=== PATIENT | female | born 1960 | race Caucasian/White ===

== ENCOUNTER → 2018-03-10 | Outpatient (CLI) | payer BC | END | disposition home or self-care (01) | LOC: LABPAT 09:46 | PROVIDERS: ATTEND Orthopaedic Surgery | DX: Z01.812 Encounter for preprocedural laboratory examination (principal); M16.12 Unilateral primary osteoarthritis, left hip | CPT/HCPCS: 86850; 86900; 86901; 87070 ==

== ENCOUNTER → 2018-03-12 | Outpatient (CLI) | payer BC ==
--- NOTE | 2018-03-12 11:15 | XR ---
EXAMINATION TYPE: XR chest 2V DATE OF EXAM: 03/12/2018 COMPARISON: 01/10/2012 TECHNIQUE: PA and lateral views submitted. HISTORY: Presurgical testing FINDINGS: The lungs are clear and there is no pneumothorax, pleural effusion, or focal pneumonia. Hypertrophic and degenerative change of the spine. No overt failure. Mild hyperinflation correlate for COPD. IMPRESSION: 1. No acute process.
== END ==
LOC: RADXRMAIN 09:49
PROVIDERS: ATTEND Family Medicine
DX: Z01.89 Encounter for other specified special examinations (principal)
CPT/HCPCS: 71046

== ENCOUNTER 2018-03-16 08:00 | Inpatient (IN) | payer BC ==
[2018-03-04 16:07] VITALS: BMI 25.9
--- NOTE | 2018-03-15 12:56 | HP ---
HISTORY AND PHYSICAL CHIEF COMPLAINT: Left hip pain. HISTORY OF PRESENT ILLNESS: The patient is a 57-year-old female who presents with progressive left hip pain worsening over the past couple years. She notes groin and thigh pain, worse with weightbearing activities. She notes she has been limping and is significantly limited because of pain. She has tried medications with only partial temporary relief. PAST MEDICAL HISTORY: Significant for depression, hypertension, hypothyroidism, and arthritis. PAST SURGICAL HISTORY: Significant for previous right total hip arthroplasty and hammertoe repair. CURRENT MEDICATIONS: Nexium, Synthroid and Prozac. ALLERGIES: She has sensitivity to Motrin. FAMILY HISTORY: Significant for heart disease and cancer. SOCIAL HISTORY: Negative for current tobacco or alcohol use. REVIEW OF SYSTEMS: Sixteen point review of systems otherwise reviewed and is noncontributory. PHYSICAL EXAMINATION: On examination, the patient is approximately 5 foot 6, 165 pounds of mesomorphic habitus. HEENT exam is nonfocal. Neck is supple. Passive motion. Left hip flexion 85 degrees, external rotation with hip flex 60 degrees, internal rotation 5 degrees with pain. Clinically, she is 1 cm short. She does have a mildly antalgic gait pattern. Her distal neurovascular appears intact in the left lower extremity. AP of the pelvis obtained in the office show severe left hip osteoarthrosis with bone- on-bone changes. IMPRESSION: 1. Left hip severe osteoarthrosis. 2. History of right total hip arthroplasty. RECOMMENDATIONS: I talked to the patient at length regarding her condition and treatment options. At this point, she is quite limited and symptomatic having pain secondary to her osteoarthrosis. After thorough discussion, she opts to proceed with surgery. We will plan to proceed with direct anterior approach left total hip arthroplasty. We will institute DVT prophylaxis postoperatively. MMODL / IJN: [id number] /
[~2018-03-16 08:00] MED LIST: ACETAMINOPHEN TAB 500 MG TAB PO ONE; DEXAMETHASONE SOD PHOSPHATE 10 MG/ML 1 ML VIAL IV ONE; HYDROmorphone 0.5 MG/0.5 ML SYRINGE IVP PRN; MORPHINE SULFATE 2 MG/ML SYRINGE IV PRN; ONDANSETRON 4 MG/2 ML VIAL IVP ONE; ONDANSETRON 4 MG/2 ML VIAL IVP PRN; TRANEXAMIC ACID 1,000 MG in SODIUM CHLORIDE 0.9% 50 ML IVPB ONE; ceFAZolin IN SWFI 2 GM/20 ML SYRINGE IVP ONE
[2018-03-16] MEDS ORDERED: LIDOCAINE 1% 20 ML VIAL (10MG/ML) FOR IV START INTRADERMA ONE (09:45)
[2018-03-16] MEDS: LACTATED RINGERS 1,000 ML IV SCH (09:45)
[2018-03-16] MEDS ORDERED: SODIUM CHLORIDE 0.9% 100 ML BAG ONE (11:05)
[2018-03-16] MEDS ORDERED: HEPARIN SODIUM,PORCINE 10,000 UNIT/ML 1 ML VIAL ONE (11:05)
[2018-03-16] MEDS ORDERED: MIDAZOLAM 2 MG/2 ML VIAL ONE (11:05)
[2018-03-16] MEDS ORDERED: MORPHINE SULFATE (PF) 0.3 MG/0.3 ML SYR ONE (11:05)
[2018-03-16] MEDS ORDERED: LACTATED RINGERS 1,000 ML BAG IV ONE (11:05)
[2018-03-16] MEDS ORDERED: ePHEDrine SULFATE/0.9% NACL/PF 50 MG/5 ML SYRINGE IV ONE (11:05)
[2018-03-16] MEDS ORDERED: TRANEXAMIC ACID 1,000 MG/10 ML VIAL ONE (11:05)
[2018-03-16] MEDS ORDERED: diphenhydrAMINE 50 MG/ML 1 ML VIAL IVP PRN (11:31)
[2018-03-16] MEDS ORDERED: NALOXONE 0.4 MG/ML 1 ML VIAL IV PRN (11:31)
[2018-03-16] MEDS ORDERED: NALBUPHINE 10 MG/ML VIAL (10ML MDV) IV PRN (11:31)
[2018-03-16] MEDS ORDERED: MORPHINE SULFATE 4 MG/ML SYRINGE IVP PRN (11:31)
[2018-03-16] MEDS ORDERED: ceFAZolin 3,000 MG in SODIUM CHLORIDE 0.9% IRRIGATIO 3,000 ML IRRIGATION ONE (12:03)
[2018-03-16] MEDS ORDERED: LACTATED RINGERS 1,000 ML IV ONE (12:12)
[2018-03-16] MEDS ORDERED: ONDANSETRON 4 MG/2 ML VIAL IVP PRN (13:28)
[2018-03-16] MEDS ORDERED: ACETAMINOPHEN TAB 325 MG TAB PO PRN (13:28)
[2018-03-16] MEDS ORDERED: HYDROmorphone 1 MG/ML 1 ML SYRINGE IVP PRN (13:28)
[2018-03-16] MEDS ORDERED: HYDROmorphone 0.5 MG/0.5 ML SYRINGE IVP PRN (13:28)
--- NOTE | 2018-03-16 13:39 | P.OP ---
Date of Procedure: 03/16/18 Preoperative Diagnosis: Severe left hip osteoarthrosis Postoperative Diagnosis: Same Procedure(s) Performed: Left total hip nmzlrpwsxemu-nxges-pif-anterior approach Implants: Depuy Corail size 12 standard collared press-fit femoral stem, 32 mm +5 cobalt chrome femoral head, 52 mm [place] acetabular shell with neutral polyethylene liner. Anesthesia: spinal Surgeon: Juan Nolasco Refrigerating Engineer #1: Ventura Do Estimated Blood Loss (ml): 250 Pathology: other (Femoral head) Condition: stable Disposition: PACU Indications for Procedure: The patient's a 57-year-old female who presents with progressive left hip pain secondary osteoarthrosis despite conservative measures. A discussion of the risks and benefits of operative intervention versus continued conservative measures was made with patient. She opted to proceed with surgery. Operative risks to include infection, neurovascular injury, development of blood clots, possible ligament was cut, possible fracture, possible instability/dislocation, and possible need for subsequent procedures was discussed. Informed consent was obtained. Operative Findings: As below Description of Procedure: The patient was brought to the operating room, and after induction of spinal anesthesia was placed supine on the Jia table. Positioning was checked with fluoroscopy. The left hip was then prepped and draped in a normal fashion. A 12 cm incision was then made starting 2 fingerbreadths distal and 3 finger breaths posterior to the ASIS in line with the proximal femur. The skin was incised sharply. Subcutaneous tissues were divided sharply. Electrocautery was used for hemostasis. The fascia was split in line with skin incision. The interval between the sartorius and tensor fascia sona was then bluntly developed. The posterior fascia was opened with electrocautery. The lateral circumflex vessels were identified and cauterized prior to sectioning. A retractor was placed along the superior femoral neck as well as the anterior acetabular rim. A wide capsulotomy was performed. The neck cut was then made at a 45 angle to the shaft approximately 1 1/2 cm above the level of the lesser trochanter. The head was extracted. Attention was then paid towards preparing the acetabular. Anterior and posterior retractors were placed. The remaining capsular labral tissue sharply debrided clearly defining the acetabular margins. I began reaming with a 49 mm reamer taking care to initially medialize then reaming at 45 of abduction and 20 of anteversion. Sequential reaming is performed up to 51 mm. A trial to mm acetabular shell was inserted in the same orientation and was fully seated. There was good rim fit and stability. Positioning was checked with fluoroscopy. The final 52 mm acetabular shell was inserted again at 45 of abduction and 20 of anteversion. This was fully seated. There was good rim fit and stability. I did place a 6.5 mm x 25 mm cancellus screw posteriorly with good purchase. Again fluoroscopy was used to check the adequacy of placement. A neutral polyethylene liner was gently impacted. Care was taken to avoid any soft tissue interposition. Pulsatile lavage was utilized. Attention was then paid towards preparing the proximal femur. The central region was cleared of soft tissue. A canal finder was used to find the femoral canal. Sequential broaching was performed up to size 12 taking care to lateralize proximally. A calcar mill was used to fashion the medial calcar. There was good rotational stability. A standard neck along with a 32 mm +5 head was placed. The hip was gently reduced. Fluoroscopy was used to check the adequacy of positioning along with leg lengths. I felt both were good. The hip was gently dislocated. The trial components were removed. The final size 12 collared standard press- fit femoral stem was inserted parallel to the posterior cortex. This was fully seated and there was good rotational stability. A 32 mm +5 cobalt chrome femoral head was placed. This was gently impacted. The hip was then gently reduced. Final fluoroscopic view showed adequate placement implant along with hoahaoism of leg length. Stability was checked with 80 of external rotation and 60 of extension of the right hip. The wound was irrigated with sterile lavage. The fascia was closed with running 0 Vicryl suture. There was minimal drainage therefore a deep drain was not placed. The second dose of IV TXA was given. The subcutaneous tissues were reapproximated interrupted 2-0 Vicryl sutures. The skin was reapproximated with 3-0 subcuticular strata fix suture. Skin tape and adhesive was applied. A sterile dressing was applied. The patient was then awoken from sedation and transferred to recovery room in good condition. Blood loss was estimated at 250 mL. No complications were incurred. Sponge and needle counts were correct at the end of the case. Rik NAJERA assisted during the major components is case to include exposure, bone resection, implantation, and closure.
--- NOTE | 2018-03-16 14:23 | XR ---
EXAMINATION TYPE: XR Hip Limited LT DATE OF EXAM: 03/16/2018 COMPARISON: NONE HISTORY: 57-year-old female status post hip surgery, assess surgical alignment TECHNIQUE: Portable AP view FINDINGS: Image shows placement of left-sided thoracoplasty. The acetabular cup and femoral short stemmed compo nents of the prosthesis appear well seated without periprosthetic fracture. Soft tissue air related t o the recent operation. Alignment grossly anatomic. IMPRESSION: Uncomplicated postoperative appearance left total hip arthroplasty.
--- NOTE | 2018-03-16 16:00 | FL ---
Fluoroscopy HISTORY: Left hip arthroplasty 62 seconds fluoroscopy time supplied to the referring clinician. 2 intraoperative C-arm images docum ent the procedure. See dictated report from orthopedic surgery.
--- NOTE | 2018-03-16 16:01 | XR ---
Limited left hip HISTORY: Left hip arthroplasty 2 intraoperative C-arm images document the procedure
[2018-03-16] MEDS: traMADol 50 MG TAB PO SCH (16:20)
[2018-03-16] MEDS: ceFAZolin IN SWFI 2 GM/20 ML SYRINGE IVP SCH (17:05)
[2018-03-16] MEDS: SENNOSIDES-DOCUSATE SODIUM 1 EACH TAB PO SCH (22:17)
--- NOTE | 2018-03-17 03:13 | CONS ---
CONSULTATION DATE OF CONSULTATION: March 16, 2018. REASON FOR CONSULTATION: Medical management requested by Dr. Nolasco. CONSULTATION: This is a pleasant 57-year-old patient of Dr. Whiteside who has undergone a left total hip arthroplasty. Pain is controlled. Had some nausea earlier, which is improved. Chronic stable medical conditions include GERD, hypertension, osteoarthritis, hypothyroid, hiatal hernia, anxiety. No cardiac history. Lying in bed, comfortable. Did tolerate a small amount of supper. REVIEW OF SYSTEMS: CONSTITUTIONAL: None. HEENT: None. RESPIRATORY: None. CARDIOVASCULAR: None. GENITOURINARY: None. MUSCULOSKELETAL: Aches and pains in joints. DERMATOLOGICAL, HEMATOLOGIC, LYMPHATIC: none. PSYCHIATRY: None. NEUROLOGICAL: None. PAST MEDICAL HISTORY: GERD, hypertension, osteoarthritis, hypothyroid, hiatal hernia, anxiety. PAST SURGICAL HISTORY: EGD, bilateral foot surgery, right hip replacement. PSYCH HISTORY: Anxiety. SOCIAL HISTORY: No smoking. Alcohol occasionally. Lives by herself. FAMILY HISTORY: Reviewed, noncontributory presentation. HOME MEDICATIONS: 1. Naproxen 400 to 600 mg p.o. daily. 2. Synthroid 25 mcg p.o. daily. 3. Prozac 40 mg p.o. daily. 4. Nexium 20 mg b.i.d. ALLERGY: IBUPROFEN. EXAMINATION: VITAL SIGNS: Temp 97.5 pulse 91, respiration 16, blood pressure 143/87, pulse ox 96% on 2 L. GENERAL APPEARANCE: Average build, lying in bed comfortable. EYES: Pupils equal. Conjunctivae normal. HEENT: External appearance of nose and ears normal. Oral cavity normal. NECK: JVD not raised. Mass not palpable. RESPIRATORY: Effort normal. LUNGS: Fair air entry. CARDIOVASCULAR: First and second sounds normal. No edema. ABDOMEN: Soft, nontender. Liver and spleen not palpable. LYMPHATIC: No lymph nodes palpable in neck or axillae. PSYCHIATRY: Alert and oriented x3. Mood and affect normal. NEUROLOGICAL: Pupils equal. Cranial nerves grossly intact. Power and sensation grossly intact. MUSCULOSKELETAL: Evidence of osteoarthritis especially in the hands. Dressing over the left hip. INVESTIGATIONS: Showed currently no labs. ASSESSMENT: 1. Left total hip arthroplasty. 2. Gastroesophageal reflux disease. 3. Essential hypertension. 4. Primary osteoarthritis. 5. Hypothyroid. 6. Hiatal hernia. 7. Anxiety not otherwise specified. 8. Postop nausea probably side effect of pain medication. PLAN: Home medications are resumed. Pain control is in place. Getting IV fluids. The patient is on Xarelto for DVT prophylaxis. Care was discussed with the patient. Questions were answered. Thank you Dr. Nolasco. Copy to Dr. Whiteside. MMMARLONL / ZITA: [id number] /
[2018-03-17] MEDS ORDERED: diphenhydrAMINE 50 MG/ML 1 ML VIAL ONE (03:15)
[2018-03-17] MEDS: LACTATED RINGERS 1,000 ML IV SCH (05:32)
[2018-03-17] MEDS: RIVAROXABAN 10 MG TAB PO SCH (07:53)
[2018-03-17] MEDS: traMADol 50 MG TAB PO SCH ×4 (07:54→23:27)
[2018-03-17] MEDS: FAMOTIDINE 20 MG TAB PO SCH (07:54)
[2018-03-17 08:30] LABS: Basophils % (A) 0 %; Eosinophils # (A) 0.1 k/uL (0-0.7); Eosinophils % (A) 1 %; HCT 36.8 % (34.0-46.0); HGB 11.9 gm/dL (11.4-16.0); Lymphocytes # (A) 1.3 k/uL (1.0-4.8); Lymphocytes % (A) 13 %; MCH 31.3 pg (25.0-35.0); MCHC 32.5 g/dL (31.0-37.0); MCV 96.5 fL (80.0-100.0); Mean Platelet Volume 8.3; Monocytes # (A) 0.7 k/uL (0-1.0); Monocytes % (A) 7 %; Neutrophils # (A) 7.9 k/uL (1.3-7.7); Neutrophils % (A) 78 %; Platelet Count 283 k/uL (150-450); RBC 3.81 m/uL (3.80-5.40); RDW 13.5 % (11.5-15.5); WBC 10.1 k/uL (3.8-10.6)
[2018-03-17] MEDS: HYDROcodone/APAP 7.5-325MG 1 EACH TAB PO PRN ×3 (08:37→20:31)
--- NOTE | 2018-03-17 11:35 | P.PN ---
Progress Note - Text Anesthesia POD 1. Patient is status post left THR under spinal anesthesia with intra-thecal preservative free morphine 300 g. Mild pruritus, excellent post- op analgesia, and no headache or other complications.
--- NOTE | 2018-03-17 12:07 | P.PN ---
Subjective Progress Note Date: 03/17/18 Principal diagnosis: Status post left total hip arthroplasty Patient is seen today resting in hospital bed, family is present at bedside. She noted an increase in pain while ambulating, it is controlled at this time. She denies any chest pain or shortness of breath. Objective - Vital Signs Vital signs: Vital Signs Temp 98.2 F 03/17/18 07:00 Pulse 80 03/17/18 07:00 Resp 16 03/17/18 04:46 BP 157/90 03/17/18 07:00 Pulse Ox 98 03/17/18 07:00 Intake & Output 03/16/18 03/17/18 03/17/18 18:59 06:59 18:59 Intake Total 1701 Output Total 270 Balance 1431 Weight 75.296 kg Intake: IV 1701 Output: Estimated Blood Loss 270 Other: # Voids 2 - Exam Left lower extremity: Incision is clean, dry, and intact. The exofin fusion tape is in good condition. There is minimal soft tissue swelling and ecchymosis surrounding the medial and lateral aspects of the incision. Calf is soft, no tenderness with palpation. Plantar flexion, dorsiflexion, EHL, FHL are intact. Sensory exam to light touch throughout the extremity is intact, dorsal pedis pulses 2+. - Labs CBC & Chem 7: 03/17/18 07:49 Labs: Abnormal Lab Results - Last 24 Hours (Table) 03/17/18 Range/Units 07:49 Neutrophils # 7.9 H (1.3-7.7) k/uL Assessment and Plan Plan: Assessment: Postoperative day #1 status post left total hip arthroplasty Plan: Pain control, continue current oral medication GI and DVT prophylaxis, continue current medication Daily dressing changes Encourage incentive spirometer Medical recommendations Discharge planning: Plan for discharge home tomorrow Time with Patient: Less than 30
[2018-03-17] MEDS: ceFAZolin IN SWFI 2 GM/20 ML SYRINGE IVP SCH (13:13)
[2018-03-17] MEDS: SENNOSIDES-DOCUSATE SODIUM 1 EACH TAB PO SCH (20:31)
--- NOTE | 2018-03-17 23:57 | PN ---
PROGRESS NOTE DATE OF SERVICE: 03/17/2018. PRESENTING COMPLAINT: Left hip surgery. INTERVAL HISTORY: Patient is status post left hip surgery. I saw the patient earlier today. Feeling better. Nausea is better. Did tolerate some diet. Did work with therapy. No chest pain or shortness of breath. REVIEW OF SYSTEMS: Done for constitutional, cardiovascular, GI, pulmonary, musculoskeletal; relevant findings as above. CURRENT MEDICATIONS: Reviewed. PHYSICAL EXAMINATION: Temperature 97.6, pulse 86, respirations 16, blood pressure 169/84, pulse ox 96% on room air. GENERAL APPEARANCE: Propped up in bed comfortable. EYES: Pupils equal. Conjunctivae normal. HEENT: External nose and ears normal. Oral cavity normal. NECK: JVD not raised. Mass not palpable. Respiratory effort normal. LUNGS: Fair air entry. CARDIOVASCULAR: 1st and 2nd heart sounds normal. No edema. ABDOMEN: Soft nontender. Liver and spleen not palpable. PSYCHIATRY: Alert and oriented x3. Mood and affect normal. INVESTIGATIONS: White count 10.1, hemoglobin 11.9. ASSESSMENT: 1. Left total hip arthroplasty. 2. Gastroesophageal reflux disease. 3. Essential hypertension. 4. Primary osteoarthritis. 5. Hypothyroid. 6. Hiatal hernia. 7. Anxiety, not otherwise specified. 8. Postop nausea, side effect of pain medication, improved. PLAN: Care was discussed with the patient. Overall doing better. Continue current medication and treatment plan. Thank you, Dr. Nolasco. REID / ZITA: [id number] /
[2018-03-18] MEDS: HYDROcodone/APAP 7.5-325MG 1 EACH TAB PO PRN ×3 (02:41→13:48)
[2018-03-18] MEDS: LACTATED RINGERS 1,000 ML IV SCH (03:51)
[2018-03-18] MEDS ORDERED: LEVOTHYROXINE 25 MCG TAB PO SCH (06:30)
[2018-03-18] MEDS ORDERED: PANTOPRAZOLE 40 MG TABLET PO SCH (07:30)
[2018-03-18] MEDS: FAMOTIDINE 20 MG TAB PO SCH (08:16)
[2018-03-18] MEDS: traMADol 50 MG TAB PO SCH ×2 (08:16→13:48)
[2018-03-18] MEDS: RIVAROXABAN 10 MG TAB PO SCH (08:17)
[2018-03-18 08:48] VITALS: BP 133/83; PULSE 87; TEMP 98.1
[2018-03-18] MEDS ORDERED: FLUoxetine HCL 20 MG CAP PO SCH (09:00)
[2018-03-18 09:31] VITALS: RESP 16
--- NOTE | 2018-03-18 10:44 | P.PN ---
Subjective Progress Note Date: 03/18/18 Principal diagnosis: Status post left total hip arthroplasty Patient is seen today resting in hospital bed, she appears comfortable. Her pain is much improved since yesterday. She denies any chest pain or shortness of breath. Objective - Vital Signs Vital signs: Vital Signs Temp 98.1 F 03/18/18 07:49 Pulse 87 03/18/18 07:49 Resp 16 03/18/18 08:00 BP 133/83 03/18/18 07:49 Pulse Ox 96 03/18/18 07:49 Intake & Output 03/17/18 03/18/18 03/18/18 18:59 06:59 18:59 Other: Voiding Method Toilet Toilet # Voids 2 2 # Bowel Movements 1 - Exam Left lower extremity: Incision is clean, dry, and intact. The exofin fusion tape is in good condition. There is minimal soft tissue swelling and ecchymosis surrounding the medial and lateral aspects of the incision. Calf is soft, no tenderness with palpation. Plantar flexion, dorsiflexion, EHL, FHL are intact. Sensory exam to light touch throughout the extremity is intact, dorsal pedis pulses 2+. - Labs CBC & Chem 7: 03/17/18 07:49 Assessment and Plan Plan: Assessment: Postoperative day #2 status post left total hip arthroplasty Plan: Pain control, plan for discharge on [place] and tramadol GI and DVT prophylaxis, discharge on Eliquis 2.5mg bid Daily dressing changes Encourage incentive spirometer Medical recommendations Discharge planning: Plan for discharge home today Time with Patient: Less than 30
--- NOTE | 2018-03-18 10:57 | P.DS ---
Providers Date of admission: 03/16/18 08:50 Expected date of discharge: 03/18/18 Attending physician: Juan Nolasco Consults: 03/16/18 13:33 Consult Physician Routine Consulting Provider: Lamont Whiteside Consult Reason/Comments: Medical Management Do you want consulting provider notified?: Yes Primary care physician: Lamont Whiteside [facility] Course: Date of admission: 03/16/2018 Date of discharge: 03/18/2018 Admission diagnosis: Status post direct anterior left total hip arthroplasty Discharge diagnosis: Same Attending physician: Dr. Nolasco Surgical procedures: Direct anterior left total hip arthroplasty Brief history: Patient is a 57-year-old female with a history of progressive primary left hip osteoarthritis. At this point patient has failed conservative treatment measures and has opted to proceed with a elective left total hip arthroplasty. Hospital course: Details of patient's surgery can be found in operative report. Patient tolerated the procedure well and was subsequently transported to orthopedic floor. Patient's orthopeidc and medical care was provided daily. Patient had daily laboratory tests performed for evaluation of overall blood counts. Patient had daily physical therapy to include strengthening range of motion as well as education with walker ambulation. Patient was treated with Xarelto for their postoperative DVT prophylaxis during their inpatient stay. Patient was noted to have a relatively uneventful postoperative course. Patient reported satisfactory pain control with oral pain medications by postoperative day 0. Patient showed satisfactory progress with physical therapy. Patient moved steadily through the program and had no difficulty meeting the goals by postoperative day 2. Given patient's otherwise satisfactory course and having met physical therapy goals, plan is to discharge patient home on postoperative day 2. Discharge condition/disposition: Patient will be discharged home in stable condition. Discharge medications: Instructions are given on resumption of patient's normal daily medications per primary care recommendation, in addition patient will be prescribed [place] 7.5 mg/325 mg, tramadol 50 mg, Eliquis 2.5mg, Colace 100mg. Discharge instructions: 1. Wound care and infection precautions, keep incision dry and covered while showering, no lotions, creams, moisturizers. No soaking, tubs, pools, hottubs. Do not scrub over the incision. 2. Weight-bear as tolerated with walker / cane until follow-up. 3. Ice and elevate when necessary. Do not exceed 20 minutes per hour with ice pack. 4. Utilize compression sleeve until seen at first follow up appointment. 5. Visiting nursing care. 6. Home physical therapy. 7. Pain meds and anticoagulants per prescription. 8. Pain medication has potential to cause constipation. Increase oral fluid and fiber intake. Contact primary care provider if you have not had a bowel movement within 48 hours after discharge 9. No anti-inflammatory medication until discussed at first post operative visit, this including Motrin, Aleve, Mobic, Diclofenac. 10. Follow up in office at 2 weeks postop with Rik Do PA-C 11. Follow up with your primary care doctor 7-10 days after discharge. 12. Contact [facility] with any questions, . Procedures: Direct anterior left total hip arthroplasty Patient Condition at Discharge: Good Plan - Discharge Summary Discharge Rx Participant: Yes New Discharge Prescriptions: New Apixaban [Eliquis] 2.5 mg PO BID #28 tab Docusate [Colace] 100 mg PO DAILY #30 capsule HYDROcodone/APAP 7.5-325MG [[place] 7.5] 1 - 2 each PO Q6HR PRN #56 tab PRN Reason: Pain traMADol HCl [Ultram] 50 mg PO Q6H PRN #28 tab PRN Reason: Pain No Action Levothyroxine Sodium [Synthroid] 25 mcg PO QAM FLUoxetine HCL [PROzac] 40 mg PO QAM Naproxen Sodium [Aleve] 440 - 660 mg PO DAILY Esomeprazole Magnesium [NexIUM] 20 mg PO BID Discharge Medication List FLUoxetine HCL [PROzac] 40 mg PO QAM 11/03/13 [History] Levothyroxine Sodium [Synthroid] 25 mcg PO QAM 11/03/13 [History] Esomeprazole Magnesium [NexIUM] 20 mg PO BID 03/04/18 [History] Naproxen Sodium [Aleve] 440 - 660 mg PO DAILY 03/04/18 [History] Apixaban [Eliquis] 2.5 mg PO BID #28 tab 03/18/18 [Rx] Docusate [Colace] 100 mg PO DAILY #30 capsule 03/18/18 [Rx] HYDROcodone/APAP 7.5-325MG [[place] 7.5] 1 - 2 each PO Q6HR PRN #56 tab 03/18/18 [ Rx] traMADol HCl [Ultram] 50 mg PO Q6H PRN #28 tab 03/18/18 [Rx] Follow up Appointment(s)/Referral(s): [facility], [NON-STAFF] - As Needed Ventura Do PAC [PHYSICIAN HEALTH OFFICER] - 2 Weeks Activity/Diet/Wound Care/Special Instructions: Orthopedic Discharge Instructions: 1. Wound care and infection precautions, keep incision dry and covered while showering, no lotions, creams, moisturizers. No soaking, pools, hot tubs. Do not scrub over incision. 2. Weight-bear as tolerated with walker / cane until follow-up. 3. Ice and elevate when necessary. Do not exceed 20 minutes per hour with ice pack. 4. Utilize compression sleeve until seen at first follow up appointment. 5. Pain meds and anticoagulants per prescription. 6. Pain medication has potential to cause constipation. Increase oral fluid and fiber intake. Contact primary care provider if you have not had a bowel movement within 48 hours after discharge. 7. No anti-inflammatory medication until discussed at first post operative visit, this including Motrin, Aleve, Mobic, Diclofenac. 8. Follow up in office at 2 weeks postop with Rik Do PA-C 9. Follow up with your primary care doctor 7-10 days after discharge. 10. Contact [facility] with any questions, . Discharge Disposition: HOME WITH HOME HEALTH SERVICES
--- NOTE | 2018-03-18 17:34 | PN ---
PROGRESS NOTE DATE OF SERVICE: March 18, 2018. PRESENTING COMPLAINT: Left hip surgery. INTERVAL HISTORY: Patient is status post left hip surgery. Some pain is present. Overall feeling better. No cardiac symptoms. Did work with therapy. Did tolerate her meals. REVIEW OF SYSTEMS: Done for constitutional, cardiovascular, GI, pulmonary and relevant findings as above. CURRENT MEDICATIONS: Reviewed. PHYSICAL EXAMINATION: VITAL SIGNS: Temperature 98.1, pulse 87, respirations 14, blood pressure 133/83, pulse ox 96 percent. GENERAL APPEARANCE: Sitting up, comfortable. EYES: Pupils equal. Conjunctivae normal. NECK: JVD not raised. Mass not palpable. RESPIRATORY: Effort normal. LUNGS are clear. CARDIOVASCULAR: 1st and 2nd sounds normal. No edema. ABDOMEN: Soft, nontender. Liver and spleen not palpable. PSYCHIATRY: Alert and oriented x3. Mood and affect is normal. INVESTIGATIONS: No lab work from today. ASSESSMENT: 1. Left total hip arthroplasty. 2. Gastroesophageal reflux disease. 3. Essential hypertension. 4. Primary osteoarthritis. 5. Hypothyroid. 6. Hiatal hernia. 7. Anxiety not otherwise specified. 8. Postop nausea, side effect of pain medication, much improved. PLAN: Overall doing much better. Continue current medication and treatment plan. If discharged, should follow with the family doctor. Thank you Dr. Nolasco. MMODL / IJN: [id number] /
== END 2018-03-18 14:00 | disposition home health service (06) | DRG 470 ==
LOC: 2ORMAIN 08:50 → 4SSUR 15:04
PROVIDERS: ADMIT Orthopaedic Surgery; ATTEND Orthopaedic Surgery
PROC: 0SRB02A Replacement of Left Hip Joint with Metal on Polyethylene Synthetic Substitute, Uncemented, Open Approach (ICD-10-PCS; principal; 2018-03-16 10:25)
DX: M16.12 Unilateral primary osteoarthritis, left hip (principal); E03.9 Hypothyroidism, unspecified; F41.9 Anxiety disorder, unspecified; I10 Essential (primary) hypertension; K21.9 Gastro-esophageal reflux disease without esophagitis; K44.9 Diaphragmatic hernia without obstruction or gangrene; Z96.641 Presence of right artificial hip joint; Z79.890 Hormone replacement therapy; Z79.899 Other long term (current) drug therapy
CPT/HCPCS: 73501; 85025; 86850; 86891; 86900; 86901; 88300

== ENCOUNTER → 2018-03-19 | Outpatient (CLI) | payer BC ==
--- NOTE | 2018-03-19 14:14 | US ---
EXAMINATION TYPE: US venous doppler duplex LE LT DATE OF EXAM: 03/19/2018 1:29 PM COMPARISON: NONE CLINICAL HISTORY: M79.662, R22.42 PAIN AND SWELLING IN LT LOWER LIMB. Left hip replacement Thursday, SIDE PERFORMED: Left TECHNIQUE: The lower extremity deep venous system is examined utilizing real time linear array sonog jose with graded compression, doppler sonography and color-flow sonography. VESSELS IMAGED: External Iliac Vein (EIV) Common Femoral Vein Deep Femoral Vein Greater Saphenous Vein * Femoral Vein Popliteal Vein Small Saphenous Vein * Proximal Calf Veins (* superficial vessels) Grayscale, color doppler, spectral doppler imaging performed of the deep veins of the left lower extr emity. There is normal flow, compressibility, vascular waveforms. Left Leg: Negative for DVT. Soft tissue swelling/edema at the anterior left knee at the patient's ar ea of pain and swelling measuring 6.0 x 1.5 x 5.1 cm IMPRESSION: Elongated region of subcutaneous edema anterior to the left knee in the area of patient 's pain. No sonographic evidence of deep venous thrombosis within the left lower extremity.
== END ==
LOC: RADUSWWP 12:41
PROVIDERS: ATTEND Orthopaedic Surgery
DX: R60.0 Localized edema (principal); Z88.6 Allergy status to analgesic agent

== ENCOUNTER → 2019-01-27 | Outpatient (CLI) | payer BC ==
--- NOTE | 2019-01-28 11:17 | MM ---
Reason for exam: screening (asymptomatic). Last mammogram was performed 14 years ago. History: Patient is postmenopausal. Family history of breast cancer in paternal aunt. Physical Findings: A clinical breast exam by your physician is recommended on an annual basis and results should be correlated with mammographic findings. MG Screening Mammo w CAD Bilateral CC and MLO view(s) were taken. No prior studies available for comparison. The breast tissue is heterogeneously dense. This may lower the sensitivity of mammography. There is no discrete abnormality. No significant changes when compared with prior studies. ASSESSMENT: Negative, BI-RAD 1 RECOMMENDATION: Routine screening mammogram of both breasts in 1 year.
== END | disposition home or self-care (01) ==
LOC: RADMAMWWP 08:03
PROVIDERS: ATTEND Family Medicine
DX: Z12.31 Encounter for screening mammogram for malignant neoplasm of breast (principal)
CPT/HCPCS: 77067

== ENCOUNTER 2019-02-16 15:58 | Emergency (ER) | payer BC ==
[2019-02-16 16:03] VITALS: BP 198/104; PULSE 99; RESP 18; TEMP 98.3
--- NOTE | 2019-02-16 16:12 | ED ---
Female Urogenital HPI - General Chief complaint: Urogenital Stated complaint: Female Time Seen by Provider: 02/16/19 16:04 Source: patient Mode of arrival: ambulatory Limitations: no limitations - History of Present Illness Initial comments: Patient is a 58-year-old female presenting to the emergency room with a chief complaint of vaginal pain. Patient reports about a week ago she had "rough sex" with her boyfriend and afterwards developed vaginal swelling which is causing her obstructive urinary symptoms. She denies any bruising or lacerations to the vagina. Patient denies vaginal bleeding or discharge. Patient noticed a foul smell. Denies increased urgency or frequency or dysuria. Denies hematuria, hematochezia or melena. Denies any abdominal pain. Reports the swelling has gradually decreased since the incident occurred. Patient is concerned for STI and would like to get check. Denies night sweats fevers or chills. Denies fla nk pain, nausea vomiting diarrhea. - Related Data Home Medications Medication Instructions Recorded Confirmed FLUoxetine HCL [PROzac] 40 mg PO QAM 11/03/13 03/16/18 Levothyroxine Sodium [Synthroid] 25 mcg PO QAM 11/03/13 03/16/18 Esomeprazole Magnesium [NexIUM] 20 mg PO BID 03/04/18 03/16/18 Naproxen Sodium [Aleve] 440 - 660 mg PO DAILY 03/04/18 03/16/18 Previous Rx's Medication Instructions Recorded Apixaban [Eliquis] 2.5 mg PO BID #28 tab 03/18/18 Docusate [Colace] 100 mg PO DAILY #30 capsule 03/18/18 HYDROcodone/APAP 7.5-325MG [[place] 1 - 2 each PO Q6HR PRN #56 tab 03/18/18 7.5] traMADol HCl [Ultram] 50 mg PO Q6H PRN #28 tab 03/18/18 Fluconazole [Diflucan] 150 mg PO ONCE #2 tab 02/16/19 Nitrofurantoin Monohyd/M-Cryst 100 mg PO Q12HR #14 cap 02/16/19 [Macrobid] metroNIDAZOLE [Flagyl] 500 mg PO BID #14 tab 02/16/19 Allergies Allergy/AdvReac Type Severity Reaction Status Date / Time ibuprofen [From Motrin] Allergy "hyperventi Verified 03/16/18 15:27 late" SPINAL ANESTHESIA Allergy Itching Uncoded 03/16/18 15:27 Review of Systems ROS Statement: Those systems with pertinent positive or pertinent negative responses have been documented in the HPI. ROS Other: All systems not noted in ROS Statement are negative. Past Medical History Past Medical History: GERD/Reflux, Hypertension, Osteoarthritis (OA), Pneumonia, Thyroid Disorder Additional Past Medical History / Comment(s): Hx hypertension, no meds for past year, hiatal hernia, hx pneumonia 2012, hx anemia. History of Any Multi-Drug Resistant Organisms: None Reported Past Surgical History: Joint Replacement, Orthopedic Surgery Additional Past Surgical History / Comment(s): EGD, bilateral foot surgery, right hip replacement. TLH Past Anesthesia/Blood Transfusion Reactions: Previous Problems w/ Anesthesia, Postoperative Nausea & Vomiting (PONV) Additional Past Anesthesia/Blood Transfusion Reaction / Comment(s): Itchy, rash and hives after spinal. Itching after general anesthesia. Past Psychological History: Anxiety Smoking Status: Never smoker Past Alcohol Use History: Occasional Past Drug Use History: None Reported - Past Family History Mother Family Medical History: No Reported History General Exam Limitations: no limitations General appearance: alert, in no apparent distress Head exam: Present: atraumatic, normocephalic, normal inspection Eye exam: Present: normal appearance Pupils: Present: normal accommodation ENT exam: Present: normal exam, mucous membranes moist Neck exam: Present: normal inspection, full ROM Respiratory exam: Present: normal lung sounds bilaterally Cardiovascular Exam: Present: regular rate, normal rhythm, normal heart sounds GI/Abdominal exam: Present: soft. Absent: tenderness Speculum exam: Present: vaginal discharge (Hwang, watery), tissue (Tissue swelling along the labia minora and majora on the right side.). Absent: normal speculum exam, erythema, vaginal bleeding, foreign body, laceration, other (Negative chandelier sign. No strawberry cervix.) By manual exam: Absent: cervical motion tenderness, adnexal tenderness, uterine tenderness Extremities exam: Present: normal inspection, full ROM Back exam: Present: normal inspection, full ROM Neurological exam: Present: alert, oriented X3 Psychiatric exam: Present: normal affect, normal mood Skin exam: Present: warm, dry, intact, normal color Course Vital Signs 02/16/19 16:00 Temperature 98.3 F Pulse Rate 99 Respiratory 18 Rate Blood Pressure 198/104 O2 Sat by Pulse 99 Oximetry Medical Decision Making - Medical Decision Making Patient is a 58-year-old female presenting to the emergency room with a chief complaint of vaginal pain. Patient had "rough sex" about a week ago and developed vaginal swelling afterwards. No signs of gross hematuria but did notice a foul smell. On exam there is swelling of the labia majora and minora on her right side. I suspect this is causing obstructive urinary symptoms. No obvious bleeding noted in the vagina. No other signs of trauma. Gonorrhea chlamydia and Trichomonas pending. UA shows a contaminated sample with elevated white blood cells and red blood cells. I suspect the blood cells are caused by possible trauma to the bladder or urethra. Patient will be treated with Macrobid for possible UTI. Also, suspect the patient to have bacterial vaginosi s considering she has a foul smell and hawng watery discharge. Patient will be treated with Flagyl advised not to drink alcohol. Patient also given Diflucan on watch and wait basis in case she develops a yeast infection afterwards. Patient advised to follow-up with a urologist for possible traumatic damage to the urinary tract. Strict return parameters were thoroughly discussed with patient was understanding and agreeable. Case discussed with physician. - Lab Data Lab Results 02/16/19 02/16/19 Range/Units 16:42 17:40 Urine Color Yellow Urine Appearance Cloudy H (Clear) Urine pH 6.0 (5.0-8.0) Ur Specific [place] 1.027 (1.001-1.035) Urine Protein 1+ H (Negative) Urine Glucose (UA) Negative (Negative) Urine Ketones Negative (Negative) Urine Blood Moderate H (Negative) Urine Nitrite Negative (Negative) Urine Bilirubin Negative (Negative) Urine Urobilinogen 3.0 (<2.0) mg/dL Ur Leukocyte Esterase Large H (Negative) Urine RBC >182 H (0-5) /hpf Urine WBC 152 H (0-5) /hpf Ur Squamous Epith Cells 11 H (0-4) /hpf Urine Bacteria Rare H (None) /hpf Hyaline Casts 3 H (0-2) /lpf Urine Mucus Moderate H (None) /hpf Trichomonas Ag (Rapid) Negative (Negative) Disposition Clinical Impression: Urinary tract infection, Hematuria, Vaginal Discharge, Bacterial vaginosis, Swelling of vagina Disposition: HOME SELF-CARE Condition: Stable Instructions (If sedation given, give patient instructions): Urinary Tract Infection in Women (DC) Additional Instructions: Please take prescribed medication as directed. Please follow up with a urologist. Please return to emergency department if symptoms worsen. Prescriptions: Fluconazole [Diflucan] 150 mg PO ONCE #2 tab metroNIDAZOLE [Flagyl] 500 mg PO BID #14 tab Nitrofurantoin Monohyd/M-Cryst [Macrobid] 100 mg PO Q12HR #14 cap Is patient prescribed a controlled substance at d/c from ED?: No Referrals: Lamont Whiteside DO [Primary Care Provider] - 1-2 days Flavio Tillman MD [STAFF PHYSICIAN] - 1-2 days Time of Disposition: 18:04
[2019-02-16 16:56] LABS: Appearance,Urine Cloudy (Clear); Bacteria,Urine Rare /hpf; Bilirubin,Urine Negative (Negative); Blood,Urine Moderate (Negative); Color,Urine Yellow; Glucose,Urine (UA) Negative (Negative); Hyaline Casts,Urine 3 /lpf (0-2); Ketones,Urine Negative (Negative); Leukocyte Esterase,Urine Large (Negative); Mucus,Urine Moderate /hpf; Nitrite,Urine Negative (Negative); Protein,Urine 1+ (Negative); RBC,Urine >182 /hpf (0-5); Specific Gravity,Urine 1.027 (1.001-1.035); Squamous Epithelial Cell,Urine 11 /hpf (0-4)
[2019-02-17 14:43] LABS: C. trachomatis,PCR Negative (Neg,Equiv); Chlamydia trachomatis Source Cervix
[2019-02-17 15:02] LABS: N. gonorrhoeae,PCR Negative (Neg,Equiv); Neisseria Source Cervix
== END 2019-02-16 18:10 | disposition home or self-care (01) ==
LOC: EC 15:58
DX: N76.0 Acute vaginitis (principal); B96.89 Other specified bacterial agents as the cause of diseases classified elsewhere; N39.0 Urinary tract infection, site not specified; K21.9 Gastro-esophageal reflux disease without esophagitis; M19.90 Unspecified osteoarthritis, unspecified site; E07.9 Disorder of thyroid, unspecified; F41.9 Anxiety disorder, unspecified; Z88.4 Allergy status to anesthetic agent; Z88.6 Allergy status to analgesic agent; Z79.1 Long term (current) use of non-steroidal anti-inflammatories (NSAID); Z79.890 Hormone replacement therapy; Z79.899 Other long term (current) drug therapy; Z96.641 Presence of right artificial hip joint
CPT/HCPCS: 81001; 87086; 87491; 87591; 87808; 99283

== ENCOUNTER 2020-02-12 19:35 | Emergency (ER) | payer BC ==
[2020-02-12 19:46] VITALS: TEMP 98.7
[2020-02-12] MEDS ORDERED: ONDANSETRON 4 MG/2 ML VIAL IVP STA (19:59)
[2020-02-12] MEDS ORDERED: PANTOPRAZOLE 40 MG/10 ML VIAL IVP STA (19:59)
[2020-02-12] MEDS ORDERED: SODIUM CHLORIDE 0.9% 1,000 ML IV STA ×2 (19:59)
[2020-02-12] MEDS ORDERED: HYDROmorphone 1 MG/ML 1 ML SYRINGE IVP STA (20:01)
--- NOTE | 2020-02-12 20:26 | ED ---
Abdominal Pain HPI - General Chief Complaint: Abdominal Pain Stated Complaint: ABD pain Time Seen by Provider: 02/12/20 19:49 Source: patient, RN notes reviewed, old records reviewed Mode of arrival: ambulatory Limitations: no limitations - History of Present Illness Initial Comments: 51-year-old female presents with a week of right-sided intermittent pain. She reports that seems to be in her right flank and upper abdominal area. She states that she's had no rashes or skin changes. She saw her PCP grandson lab test she does not know results. They believe is related to muscle spasm. Patient at this time denies any cough and shortness of breath. She denies any other significant complaints of vomiting and diarrhea. - Related Data Home Medications Medication Instructions Recorded Confirmed Esomeprazole Magnesium [NexIUM 20 mg PO BID 02/12/20 02/12/20 24Hr] Previous Rx's Medication Instructions Recorded Ondansetron Odt [Zofran Odt] 4 mg PO Q8HR PRN #12 tab 02/12/20 traMADol HCL [Ultram] 50 mg PO Q6HR PRN 3 Days #12 tab 02/12/20 Allergies Allergy/AdvReac Type Severity Reaction Status Date / Time hydromorphone [From Dilaudid] AdvReac Nausea & Verified 02/12/20 22:27 Vomiting ibuprofen [From Motrin] AdvReac "hyperventi Verified 02/12/20 22:11 late" SPINAL ANESTHESIA Allergy Itching Uncoded 02/12/20 22:11 Review of Systems ROS Statement: Those systems with pertinent positive or pertinent negative responses have been documented in the HPI. ROS Other: All systems not noted in ROS Statement are negative. Past Medical History Past Medical History: GERD/Reflux, Hypertension, Osteoarthritis (OA), Pneumonia, Thyroid Disorder Additional Past Medical History / Comment(s): Hx hypertension, no meds for past year, hiatal hernia, hx pneumonia 2012, hx anemia. History of Any Multi-Drug Resistant Organisms: None Reported Past Surgical History: Joint Replacement, Orthopedic Surgery Additional Past Surgical History / Comment(s): EGD, bilateral foot surgery, right hip replacement. TLH Past Anesthesia/Blood Transfusion Reactions: Previous Problems w/ Anesthesia, Postoperative Nausea & Vomiting (PONV) Additional Past Anesthesia/Blood Transfusion Reaction / Comment(s): Itchy, rash and hives after spinal. Itching after general anesthesia. Past Psychological History: Anxiety Smoking Status: Never smoker Past Alcohol Use History: Occasional Past Drug Use History: None Reported - Past Family History Mother Family Medical History: No Reported History General Exam - General Exam Comments Initial Comments: 51-year-old female. Alert and oriented. Moderate discomfort Limitations: no limitations General appearance: alert, in no apparent distress Head exam: Present: atraumatic, normocephalic, normal inspection Eye exam: Present: normal appearance, PERRL, EOMI. Absent: scleral icterus, conjunctival injection, periorbital swelling ENT exam: Present: normal exam, mucous membranes moist Neck exam: Present: normal inspection. Absent: tenderness, meningismus, lymphadenopathy Respiratory exam: Present: normal lung sounds bilaterally. Absent: respiratory distress, wheezes, rales, rhonchi, stridor Cardiovascular Exam: Present: regular rate, normal rhythm, normal heart sounds. Absent: systolic murmur, diastolic murmur, rubs, gallop, clicks GI/Abdominal exam: Present: soft, tenderness (Right upper quadrant tenderness), normal bowel sounds. Absent: distended, guarding, rebound, rigid Extremities exam: Present: normal inspection, full ROM, normal capillary refill. Absent: tenderness, pedal edema, joint swelling, calf tenderness Back exam: Present: normal inspection Neurological exam: Present: alert, oriented X3, CN II-XII intact Psychiatric exam: Present: normal affect, normal mood Skin exam: Present: warm, dry, intact, normal color. Absent: rash Course Vital Signs 02/12/20 02/12/20 02/12/20 19:44 20:49 21:30 Temperature 98.7 F Pulse Rate 103 H 66 Respiratory 18 18 Rate Blood Pressure 216/105 137/100 140/89 O2 Sat by Pulse 96 99 Oximetry Medical Decision Making - Medical Decision Making 59-year-old presents return today with right-sided flank and upper abdominal pain. Patient reports been intermittent for the past few days. Patient's labwork was reviewed relatively unremarkable. I discussed possibility of biliary colic versus renal onset of pain. Patient had computed tomography scan which showed normal gallbladder. No signs of stones or obstruction. Computed tomography scan mention concern for multiple renal cysts and a third right kidney. Patient was reported these results. Discussed her pain could be rela jayden to the kidney abnormalities or possibly biliary colic. I discussed following up with urology or nephrology as well as primary care doctor and general surgery for possible HIDA scan and future. Patient is agreeable to treatment plan. Ration did have a acute nausea and vomiting after receiving Dilaudid. This will be placed on ALLERGY list. - Lab Data Result diagrams: 02/12/20 20:26 02/12/20 20:26 Lab Results 02/12/20 02/12/20 02/12/20 Range/Units 20:26 20:26 20:26 WBC 6.4 (3.8-10.6) k/uL RBC 4.55 (3.80-5.40) m/uL Hgb 12.5 (11.4-16.0) gm/dL Hct 37.9 (34.0-46.0) % MCV 83.3 (80.0-100.0) fL MCH 27.6 (25.0-35.0) pg MCHC 33.1 (31.0-37.0) g/dL RDW 15.0 (11.5-15.5) % Plt Count 397 (150-450) k/uL MPV 8.5 Neutrophils % 50 % Lymphocytes % 36 % Monocytes % 6 % Eosinophils % 5 % Basophils % 1 % Neutrophils # 3.2 (1.3-7.7) k/uL Lymphocytes # 2.3 (1.0-4.8) k/uL Monocytes # 0.4 (0-1.0) k/uL Eosinophils # 0.3 (0-0.7) k/uL Basophils # 0.0 (0-0.2) k/uL PT 9.6 (9.0-12.0) sec INR 0.9 (<1.2) APTT 23.6 (22.0-30.0) sec Sodium (137-145) mmol/L Potassium (3.5-5.1) mmol/L Chloride (98-107) mmol/L Carbon Dioxide (22-30) mmol/L Anion Gap mmol/L BUN (7-17) mg/dL Creatinine (0.52-1.04) mg/dL Est GFR (CKD-EPI)AfAm (>60 ml/min/1.73 sqM) Est GFR (CKD-EPI)NonAf (>60 ml/min/1.73 sqM) Glucose (74-99) mg/dL Plasma Lactic Acid Dougie (0.7-2.0) mmol/L Calcium (8.4-10.2) mg/dL Total Bilirubin (0.2-1.3) mg/dL AST (14-36) U/L ALT (4-34) U/L Alkaline Phosphatase (38-126) U/L Troponin I (0.000-0.034) ng/mL Total Protein (6.3-8.2) g/dL Albumin (3.5-5.0) g/dL Amylase (30-110) U/L Lipase (23-300) U/L Urine Color Yellow Urine Appearance Cloudy H (Clear) Urine pH 5.5 (5.0-8.0) Ur Specific [place] 1.035 (1.001-1.035) Urine Protein 1+ H (Negative) Urine Glucose (UA) Negative (Negative) Urine Ketones Trace H (Negative) Urine Blood Negative (Negative) Urine Nitrite Negative (Negative) Urine Bilirubin Negative (Negative) Urine Urobilinogen 4.0 (<2.0) mg/dL Ur Leukocyte Esterase Small H (Negative) Urine RBC 2 (0-5) /hpf Urine WBC 5 (0-5) /hpf Ur Squamous Epith Cells 4 (0-4) /hpf Calcium Oxalate Crystal Moderate H (None) /hpf Urine Mucus Many H (None) /hpf 02/12/20 02/12/20 02/12/20 Range/Units 20:26 20:26 20:26 WBC (3.8-10.6) k/uL RBC (3.80-5.40) m/uL Hgb (11.4-16.0) gm/dL Hct (34.0-46.0) % MCV (80.0-100.0) fL MCH (25.0-35.0) pg MCHC (31.0-37.0) g/dL RDW (11.5-15.5) % Plt Count (150-450) k/uL MPV Neutrophils % % Lymphocytes % % Monocytes % % Eosinophils % % Basophils % % Neutrophils # (1.3-7.7) k/uL Lymphocytes # (1.0-4.8) k/uL Monocytes # (0-1.0) k/uL Eosinophils # (0-0.7) k/uL Basophils # (0-0.2) k/uL PT (9.0-12.0) sec INR (<1.2) APTT (22.0-30.0) sec Sodium 139 (137-145) mmol/L Potassium 3.9 (3.5-5.1) mmol/L Chloride 108 H (98-107) mmol/L Carbon Dioxide 24 (22-30) mmol/L Anion Gap 7 mmol/L BUN 17 (7-17) mg/dL Creatinine 0.75 (0.52-1.04) mg/dL Est GFR (CKD-EPI)AfAm >90 (>60 ml/min/1.73 sqM) Est GFR (CKD-EPI)NonAf 88 (>60 ml/min/1.73 sqM) Glucose 151 H (74-99) mg/dL Plasma Lactic Acid Dougie 1.3 (0.7-2.0) mmol/L Calcium 9.4 (8.4-10.2) mg/dL Total Bilirubin 0.4 (0.2-1.3) mg/dL AST 21 (14-36) U/L ALT 18 (4-34) U/L Alkaline Phosphatase 81 (38-126) U/L Troponin I <0.012 (0.000-0.034) ng/mL Total Protein 7.5 (6.3-8.2) g/dL Albumin 3.8 (3.5-5.0) g/dL Amylase 52 (30-110) U/L Lipase 137 (23-300) U/L Urine Color Urine Appearance (Clear) Urine pH (5.0-8.0) Ur Specific [place] (1.001-1.035) Urine Protein (Negative) Urine Glucose (UA) (Negative) Urine Ketones (Negative) Urine Blood (Negative) Urine Nitrite (Negative) Urine Bilirubin (Negative) Urine Urobilinogen (<2.0) mg/dL Ur Leukocyte Esterase (Negative) Urine RBC (0-5) /hpf Urine WBC (0-5) /hpf Ur Squamous Epith Cells (0-4) /hpf Calcium Oxalate Crystal (None) /hpf Urine Mucus (None) /hpf 02/12/20 22:21 EKG shows normal sinus rhythm normal EKG. Ventricular rate of 64 bpm. Verbal 160 ms. QRS duration is 84 ms. QT QTc is 4:30/443 ms. - Radiology Data Radiology results: report reviewed CT shows Numerous renal parapelvic cyst. 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 No renal stone or obs truction. Appendix not seen. Chest x-rays negative for acute cardiopulmonary process. Patient's KUB shows mild constipation. Disposition Clinical Impression: Right flank discomfort, Renal cyst, Congenital abnormality of kidney Disposition: HOME SELF-CARE Condition: Good Instructions (If sedation given, give patient instructions): Abdominal Pain (ED) Additional Instructions: Patient is advised to follow-up with primary care doctor, Gen. surgery and nephrology delineate course of of patient's pain. Recommend possibly having a HIDA scan as well as following up with urology regards to renal cysts and third right kidney. Patient can take the medication as prescribed to return to the ED if any alarming signs or symptoms occur. Prescriptions: traMADol HCL [Ultram] 50 mg PO Q6HR PRN 3 Days #12 tab PRN Reason: Nausea Ondansetron Odt [Zofran Odt] 4 mg PO Q8HR PRN #12 tab PRN Reason: Is patient prescribed a controlled substance at d/c from ED?: No Referrals: Lamont Whiteside DO [Primary Care Provider] - 1-2 days Time of Disposition: 22:44
[2020-02-12 20:44] LABS: Basophils % (A) 1 %; Eosinophils # (A) 0.3 k/uL (0-0.7); Eosinophils % (A) 5 %; HCT 37.9 % (34.0-46.0); HGB 12.5 gm/dL (11.4-16.0); Lymphocytes # (A) 2.3 k/uL (1.0-4.8); Lymphocytes % (A) 36 %; MCH 27.6 pg (25.0-35.0); MCHC 33.1 g/dL (31.0-37.0); MCV 83.3 fL (80.0-100.0); Mean Platelet Volume 8.5; Monocytes # (A) 0.4 k/uL (0-1.0); Monocytes % (A) 6 %; Neutrophils # (A) 3.2 k/uL (1.3-7.7); Neutrophils % (A) 50 %; Platelet Count 397 k/uL (150-450); RBC 4.55 m/uL (3.80-5.40); WBC 6.4 k/uL (3.8-10.6)
[2020-02-12 20:51] LABS: INR 0.9 (<1.2); Partial Thromboplastin Time 23.6 sec (22.0-30.0); Prothrombin Time 9.6 sec (9.0-12.0)
[2020-02-12 20:55] LABS: Appearance,Urine Cloudy (Clear); Bilirubin,Urine Negative (Negative); Blood,Urine Negative (Negative); Calcium Oxalate Crystals,Urine Moderate /hpf; Color,Urine Yellow; Glucose,Urine (UA) Negative (Negative); Ketones,Urine Trace (Negative); Leukocyte Esterase,Urine Small (Negative); Mucus,Urine Many /hpf; Nitrite,Urine Negative (Negative); PH, Urine 5.5 (5.0-8.0); Protein,Urine 1+ (Negative); RBC,Urine 2 /hpf (0-5); Specific Gravity,Urine 1.035 (1.001-1.035); Squamous Epithelial Cell,Urine 4 /hpf (0-4); WBC,Urine 5 /hpf (0-5)
[2020-02-12 20:58] LABS: ALT 18 U/L (4-34); AST 21 U/L (14-36); African American GFR (CKD) >90 (>60 ml/min/1.73 sqM); Albumin 3.8 g/dL (3.5-5.0); Alkaline Phosphatase 81 U/L (38-126); Amylase 52 U/L (30-110); Anion Gap 7 mmol/L; Blood Urea Nitrogen 17 mg/dL (7-17); Calcium 9.4 mg/dL (8.4-10.2); Carbon Dioxide 24 mmol/L (22-30); Chloride 108 mmol/L (98-107); Glucose 151 mg/dL (74-99); Lipase 137 U/L (23-300); Non-African American GFR(CKD) 88 (>60 ml/min/1.73 sqM); Potassium 3.9 mmol/L (3.5-5.1); Sodium 139 mmol/L (137-145); Total Bilirubin 0.4 mg/dL (0.2-1.3); Total Protein 7.5 g/dL (6.3-8.2)
--- NOTE | 2020-02-12 21:10 | XR ---
EXAMINATION TYPE: XR chest 2V DATE OF EXAM: 02/12/2020 COMPARISON: 03/12/2018 HISTORY: Pain TECHNIQUE: 2 views FINDINGS: Heart and mediastinum are normal. Lungs are clear. Diaphragm is normal. Bony thorax appears normal pulmonary vascularity is normal. IMPRESSION: Normal chest. No change.
--- NOTE | 2020-02-12 21:12 | XR ---
EXAMINATION TYPE: XR KUB DATE OF EXAM: 02/12/2020 COMPARISON: 09/08/2013 HISTORY: Pain TECHNIQUE: FINDINGS: 2 views were obtained supine. There is no sign of intestinal obstruction or pneumoperitoneu m. There is some retained fecal material in the large bowel. There is no evidence of a mass. There is mild lumbar dextroscoliosis. There are no pathologic calcifications. IMPRESSION: Nonacute abdomen. Mild constipation.
--- NOTE | 2020-02-12 22:11 | CT ---
EXAMINATION TYPE: CT abdomen pelvis w con DATE OF EXAM: 02/12/2020 COMPARISON: None HISTORY: right flank pain CT DLP: 1293.7 mGycm Automated exposure control for dose reduction was used. CONTRAST: Performed with IV Contrast, patient injected with 80 mL of Isovue 300. There is some mild subsegmental atelectasis at the lung bases. Heart is slightly enlarged. There is n o pericardial effusion. There is moderate hiatal hernia. Liver shows no focal defect. Spleen is intac t. Gallbladder appears normal. Bile ducts are not dilated. Stomach has normal size. There is no evide nce of pancreatic mass. There is no adrenal mass. Kidneys have normal size. There are multiple bilateral renal parapelvic cys ts. There is 3 cm cortical cyst lateral right kidney. There is 1 cm cortical cyst anterior left kidne y. Delayed images show normal renal excretion. The ureters are not dilated. There is no retroperitone al adenopathy. There is bilateral hip prosthesis. There is metal artifact that obscures the pelvis. I see no evidenc e of a pelvic mass. Bladder appears to distends smoothly. There is no inguinal hernia. There is no fr ee fluid in the pelvis. There is no mesenteric edema. There is no ascites or free air. There is no sign of a bowel obstructio n. Appendix is not definitely seen. There is no sign of thickened appendix. Fecal pattern is fairly n ormal. There is mild lumbar dextroscoliosis. There is degenerative disc narrowing in the lumbar spine. There is no compression fracture. IMPRESSION: Numerous renal parapelvic cysts. 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 No renal stone or obstruction. Appendix not seen.
[2020-02-12] MEDS ORDERED: METOCLOPRAMIDE 5 MG/ML 2 ML VIAL IVP STA (22:14)
[2020-02-12] MEDS ORDERED: diphenhydrAMINE 50 MG/ML 1 ML VIAL IVP STA (22:14)
[2020-02-12 23:11] VITALS: BP 136/86; PULSE 61; RESP 16
== END 2020-02-12 23:10 | disposition home or self-care (01) ==
LOC: EC 19:35
DX: N28.1 Cyst of kidney, acquired (principal); Q63.9 Congenital malformation of kidney, unspecified; R11.2 Nausea with vomiting, unspecified; K21.9 Gastro-esophageal reflux disease without esophagitis; Z79.899 Other long term (current) drug therapy; Z88.5 Allergy status to narcotic agent; Z88.6 Allergy status to analgesic agent; Z88.4 Allergy status to anesthetic agent; Z96.643 Presence of artificial hip joint, bilateral
CPT/HCPCS: 36415; 93005; 80053; 82150; 83605; 83690; 84484; 85025; 85610; 85730; 81001; 71046; 74018; 74177; 99285; 96374; 96375 ×4; 96361 ×3; J1200; J2765; J2405; J1170; C9113; Q9967

== ENCOUNTER → 2020-05-29 | Outpatient (CLI) | payer BC ==
--- NOTE | 2020-05-29 16:10 | BD ---
EXAMINATION TYPE: Axial Bone Density DATE OF EXAM: 05/29/2020 COMPARISON: NONE CLINICAL HISTORY: 59 YR OLD FEMALE.....ICD-10 CODE: S22.41XD MULTIPLE FXS, postmenopausal female. Height: 64.2 Weight: 169 FRAX RISK QUESTIONS: History of Fracture in Adulthood: YES RISK FACTORS HISTORY OF: LT ANKLE X3 TIMES AN ADULT RT SIDE RIB FXS AN ADULT History of Wrist Fracture: RT WRIST AM ADULT Surgery to Spine...BILAT THRs AN ADULT Active: WORKING Diet low in dairy products/other sources of calcium: NO Postmenopausal woman: YES, AT AGE 48 YRS OLD Hyperparathyroidism: NO Adrenal Insufficiency: NO MEDICATIONS: Thyroid Medications: YES, IN THE PAST, STOPPED < 1 YR AGO Additional Medications: BP MEDS, REFLUX MEDS, CALCIUM AND VIT D Additional History: HYPERTENSION, REFLUX EXAM MEASUREMENTS: Bone mineral densitometry was performed using the [employer] System. Bone mineral density as measured about the Lumbar spine is: ----- L1-L4(G/cm2): 1.154 T Score Values are as follows: ----- L1: 0.0 ----- L2: 0.3 ----- L3: 0.5 ----- L4: -1.1 ----- L1-L4: -0.2 Bone mineral density BASELINE STUDY, FIRST DEXA SCAN NO HIPS SCANNED.....BILAT THRs...THEREFORE NO FRACS %S Bone mineral density about the L Wrist (g/cm2): 0.352 T Score values are as follows: -----Dist. R+U: -3.7 -----Prox. R+U: -3.8 -----Radius total: -4.9 Bone mineral density BASELINE PERIHERNIAL DEXS STUDY IMPRESSION: Osteoporosis (T Score less than -2.5). There is increased fracture risk and therapy is usually indicated based on age. Re-Screen 1-2 years. NOTE: T-SCORE=SD OF THE YOUNG ADULT MEAN.
--- NOTE | 2020-05-30 10:17 | MM ---
Reason for exam: screening (asymptomatic). Last mammogram was performed 1 year and 4 months ago. History: Patient is postmenopausal. Family history of breast cancer in paternal aunt. Physical Findings: A clinical breast exam by your physician is recommended on an annual basis and results should be correlated with mammographic findings. MG Screening Mammo w CAD Bilateral CC and MLO view(s) were taken. Prior study comparison: January 27, 2019, bilateral MG screening mammo w CAD. January 31, 2005, bilateral screening mammogram w/CAD. The breast tissue is heterogeneously dense. This may lower the sensitivity of mammography. There is no discrete abnormality. No significant changes when compared with prior studies. ASSESSMENT: Negative, BI-RAD 1 RECOMMENDATION: Routine screening mammogram of both breasts in 1 year.
== END | disposition home or self-care (01) ==
LOC: RADMAMWWP 09:31
PROVIDERS: ATTEND Family Medicine
DX: Z12.31 Encounter for screening mammogram for malignant neoplasm of breast (principal); M81.0 Age-related osteoporosis without current pathological fracture; Z80.3 Family history of malignant neoplasm of breast; Z78.0 Asymptomatic menopausal state
CPT/HCPCS: 77067; 77080

== ENCOUNTER 2020-10-01 16:29 | Emergency (ER) | payer BC ==
[2020-10-01 16:38] VITALS: TEMP 97.8
[2020-10-01] MEDS ORDERED: LABETALOL 5 MG/ML VIAL MDV IVP STA (17:28)
[2020-10-01] MEDS ORDERED: SODIUM CHLORIDE 0.9% 1,000 ML IV STA (17:28)
[2020-10-01] MEDS ORDERED: MORPHINE SULFATE 4 MG/ML SYRINGE IVP STA (17:29)
[2020-10-01] MEDS ORDERED: diphenhydrAMINE 50 MG/ML 1 ML VIAL IVP STA (17:29)
[2020-10-01] MEDS ORDERED: ONDANSETRON 4 MG/2 ML VIAL IVP STA (17:29)
[2020-10-01 17:53] VITALS: RESP 18
[2020-10-01 18:04] LABS: Basophils % (A) 1 %; Eosinophils # (A) 0.1 k/uL (0-0.7); Eosinophils % (A) 2 %; HCT 44.6 % (34.0-46.0); Hypochromasia Slight; Lymphocytes % (A) 32 %; MCH 26.6 pg (25.0-35.0); MCHC 31.4 g/dL (31.0-37.0); MCV 84.7 fL (80.0-100.0); Mean Platelet Volume 9.1; Monocytes # (A) 0.4 k/uL (0-1.0); Monocytes % (A) 7 %; Neutrophils # (A) 3.5 k/uL (1.3-7.7); Neutrophils % (A) 56 %; Platelet Count 375 k/uL (150-450); RBC 5.26 m/uL (3.80-5.40); RDW 15.3 % (11.5-15.5); WBC 6.2 k/uL (3.8-10.6)
[2020-10-01 18:07] VITALS: PULSE 70
[2020-10-01 18:13] LABS: ALT 17 U/L (4-34); AST 23 U/L (14-36); African American GFR (CKD) >90 (>60 ml/min/1.73 sqM); Albumin 4.5 g/dL (3.5-5.0); Alkaline Phosphatase 72 U/L (38-126); Anion Gap 10 mmol/L; Blood Urea Nitrogen 17 mg/dL (7-17); Calcium 10.4 mg/dL (8.4-10.2); Carbon Dioxide 24 mmol/L (22-30); Chloride 108 mmol/L (98-107); Glucose 102 mg/dL (74-99); Magnesium 2.1 mg/dL (1.6-2.3); Non-African American GFR(CKD) 84 (>60 ml/min/1.73 sqM); Potassium 4.5 mmol/L (3.5-5.1); Sodium 142 mmol/L (137-145); Total Bilirubin 0.3 mg/dL (0.2-1.3); Total Protein 7.9 g/dL (6.3-8.2)
[2020-10-01 18:52] VITALS: BP 141/86
--- NOTE | 2020-10-01 18:55 | ED ---
Headache HPI - General Chief Complaint: Headache Stated Complaint: abnormal EKG, High BP Time Seen by Provider: 10/01/20 17:23 Mode of arrival: ambulatory Limitations: no limitations - History of Present Illness Initial Comments: Patient is a 59-year-old female presenting to the emergency Department with complaints of a headache as well as elevated blood pressure over the past few days. She does have history of hypertension but stopped taking her medications a few weeks ago. She states she has not had the time to go to her doctor's for a refill. She states she started having a headache about 3-4 days ago, thought it was from seasonal ALLERGIES but then yesterday had a little bit of blurry vision and again today so she came in for evaluation. She is currently not hav ing any blurry vision or double vision. She states her headache is a 5/10. She denies any dizziness or lightheadedness, no chest pain or shortness of breath, no nausea or vomiting. She states she's been eating and drinking as normal. She has no further complaints at this time. - Related Data Home Medications Medication Instructions Recorded Confirmed Esomeprazole Magnesium [NexIUM 20 mg PO DAILY 02/12/20 10/01/20 24Hr] Generic Otc Allergy Med (Unknown 1 tab PO DAILY PRN 10/01/20 10/01/20 Strength) Previous Rx's Medication Instructions Recorded hydroCHLOROthiazide [Hydrodiuril] 25 mg PO DAILY #30 tab 10/01/20 Allergies Allergy/AdvReac Type Severity Reaction Status Date / Time hydromorphone [From Dilaudid] AdvReac Nausea & Verified 10/01/20 18:49 Vomiting ibuprofen [From Motrin] AdvReac "hyperventi Verified 10/01/20 18:49 late" SPINAL ANESTHESIA Allergy Itching Uncoded 10/01/20 16:38 Review of Systems ROS Statement: Those systems with pertinent positive or pertinent negative responses have been documented in the HPI. ROS Other: All systems not noted in ROS Statement are negative. Past Medical History Past Medical History: GERD/Reflux, Hypertension, Osteoarthritis (OA), Pneumonia, Thyroid Disorder Additional Past Medical History / Comment(s): Hx hypertension, no meds for past year, hiatal hernia, hx pneumonia 2012, hx anemia. History of Any Multi-Drug Resistant Organisms: None Reported Past Surgical History: Joint Replacement, Orthopedic Surgery Additional Past Surgical History / Comment(s): EGD, bilateral foot surgery, right hip replacement. TLH Past Anesthesia/Blood Transfusion Reactions: Previous Problems w/ Anesthesia, Postoperative Nausea & Vomiting (PONV) Additional Past Anesthesia/Blood Transfusion Reaction / Comment(s): Itchy, rash and hives after spinal. Itching after general anesthesia. Past Psychological History: Anxiety Smoking Status: Never smoker Past Alcohol Use History: Occasional Past Drug Use History: None Reported - Past Family History Mother Family Medical History: No Reported History General Exam - General Exam Comments Initial Comments: GENERAL: Patient is well-developed and well-nourished. Patient is nontoxic and in no acute distress. HEAD: Atraumatic, normocephalic. EYES: Pupils equal round and reactive to light, extraocular movements intact, sclera anicteric, conjunctiva are normal. Eyelids were unremarkable. ENT: TMs normal, nares patent, oropharynx clear without exudates. Moist mucous membranes. NECK: Normal range of motion, supple without lymphadenopathy or JVD. LUNGS: Unlabored respirations. Breath sounds clear to auscultation bilaterally and equal. No wheezes rales or rhonchi. HEART: Regular rate and rhythm without murmurs, rubs or gallops. ABDOMEN: Soft, nontender, normoactive bowel sounds. No guarding, no rebound. No masses appreciated. : Deferred MUSCULOSKELETAL: Normal extremities with adequate strength and normal range of motion, no pitting or edema. No clubbing or cyanosis. NEUROLOGICAL: Patient is alert and oriented x 3. Motor and sensory are also intact. Cranial nerves II through XII grossly intact. Symmetrical smile. Normal speech, normal gait. PSYCH: Normal mood, normal affect. SKIN: Warm, Dry, normal turgor, no rashes or lesions noted. Limitations: no limitations Course Vital Signs 10/01/20 10/01/20 10/01/20 16:35 17:40 17:53 Temperature 97.8 F Pulse Rate 99 75 Respiratory 16 18 Rate Blood Pressure 189/127 152/110 139/89 O2 Sat by Pulse 98 95 Oximetry 10/01/20 10/01/20 18:06 18:51 Temperature Pulse Rate 70 70 Respiratory 18 18 Rate Blood Pressure 114/94 141/86 O2 Sat by Pulse 96 95 Oximetry Medical Decision Making - Medical Decision Making She is a 59-year-old female here presenting for a headache, elevated blood pressure for the past 3 days. She had a little bit of blurry vision yesterday and this morning but none at this time. She stopped taking her hypertension medicine a few weeks ago. Patient blood pressure upon arrival is 189/127, was rechecked a few minutes later and was at 200/120. Patient's exam has no acute findings, no neural deficits. Patient was given fluids, pain control for her headache as well as labetalol. Lab work is all within normal limits. Patient's blood pressure was monitored over the next 2 hours and had decreased. Current blood pressure is 141/86, she states her headache is much improved and almost gone. She states she feels well. I will re-prescribe her hypertension medication and she will follow-up with her primary care physician. Patient is stable for discharge. Patient is in agreement with this plan of care. Return parameters were discussed with the patient and they verbalized understanding. Case discussed with Dr. Yarbrough. - Lab Data Result diagrams: 10/01/20 17:50 10/01/20 17:50 Lab Results 10/01/20 10/01/20 Range/Units 17:50 17:50 WBC 6.2 (3.8-10.6) k/uL RBC 5.26 (3.80-5.40) m/uL Hgb 14.0 (11.4-16.0) gm/dL Hct 44.6 (34.0-46.0) % MCV 84.7 (80.0-100.0) fL MCH 26.6 (25.0-35.0) pg MCHC 31.4 (31.0-37.0) g/dL RDW 15.3 (11.5-15.5) % Plt Count 375 (150-450) k/uL MPV 9.1 Neutrophils % 56 % Lymphocytes % 32 % Monocytes % 7 % Eosinophils % 2 % Basophils % 1 % Neutrophils # 3.5 (1.3-7.7) k/uL Lymphocytes # 2.0 (1.0-4.8) k/uL Monocytes # 0.4 (0-1.0) k/uL Eosinophils # 0.1 (0-0.7) k/uL Basophils # 0.0 (0-0.2) k/uL Hypochromasia Slight Sodium 142 (137-145) mmol/L Potassium 4.5 (3.5-5.1) mmol/L Chloride 108 H (98-107) mmol/L Carbon Dioxide 24 (22-30) mmol/L Anion Gap 10 mmol/L BUN 17 (7-17) mg/dL Creatinine 0.79 (0.52-1.04) mg/dL Est GFR (CKD-EPI)AfAm >90 (>60 ml/min/1.73 sqM) Est GFR (CKD-EPI)NonAf 84 (>60 ml/min/1.73 sqM) Glucose 102 H (74-99) mg/dL Calcium 10.4 H (8.4-10.2) mg/dL Magnesium 2.1 (1.6-2.3) mg/dL Total Bilirubin 0.3 (0.2-1.3) mg/dL AST 23 (14-36) U/L ALT 17 (4-34) U/L Alkaline Phosphatase 72 (38-126) U/L Total Protein 7.9 (6.3-8.2) g/dL Albumin 4.5 (3.5-5.0) g/dL Disposition Clinical Impression: Hypertensive urgency, Head ache Disposition: HOME SELF-CARE Condition: Stable Instructions (If sedation given, give patient instructions): Hypertension (ED) Additional Instructions: Please return to the Emergency Department if symptoms worsen or any other concerns. Please continue with your blood pressure medication as prescribed. Follow-up with your primary care physician. Prescriptions: hydroCHLOROthiazide [Hydrodiuril] 25 mg PO DAILY #30 tab Is patient prescribed a controlled substance at d/c from ED?: No Referrals: Lamont Whiteside DO [Primary Care Provider] - 1-2 days Time of Disposition: 18:55
== END 2020-10-01 19:10 | disposition home or self-care (01) ==
LOC: EC 16:29
DX: I16.0 Hypertensive urgency (principal); I10 Essential (primary) hypertension; K21.9 Gastro-esophageal reflux disease without esophagitis; M19.90 Unspecified osteoarthritis, unspecified site; Z79.899 Other long term (current) drug therapy; Z88.5 Allergy status to narcotic agent; Z88.6 Allergy status to analgesic agent; Z96.641 Presence of right artificial hip joint
CPT/HCPCS: 36415; 93005; 80053; 83735; 85025; 96374; 96375 ×3; 96361; 99284; J2270; J1200; J2405

== ENCOUNTER 2020-10-03 09:18 | Observation (INO) | payer BC ==
[2020-10-03] MEDS ORDERED: hydrALAZINE HCL 20 MG/ML 1 ML VIAL IVP STA (10:00)
[2020-10-03] MEDS ORDERED: ONDANSETRON 4 MG/2 ML VIAL IVP STA (10:00)
[2020-10-03] MEDS ORDERED: SODIUM CHLORIDE 0.9% 1,000 ML IV ONE (10:00)
[2020-10-03 10:10] LABS: Basophils # (A) 0.1 k/uL (0-0.2); Basophils % (A) 1 %; Eosinophils # (A) 0.2 k/uL (0-0.7); Eosinophils % (A) 3 %; HCT 41.6 % (34.0-46.0); HGB 13.1 gm/dL (11.4-16.0); Hypochromasia Slight; Lymphocytes # (A) 1.7 k/uL (1.0-4.8); Lymphocytes % (A) 27 %; MCH 26.2 pg (25.0-35.0); MCHC 31.5 g/dL (31.0-37.0); MCV 83.3 fL (80.0-100.0); Mean Platelet Volume 8.8; Monocytes # (A) 0.4 k/uL (0-1.0); Monocytes % (A) 6 %; Neutrophils # (A) 3.9 k/uL (1.3-7.7); Neutrophils % (A) 61 %; Platelet Count 387 k/uL (150-450); RBC 4.99 m/uL (3.80-5.40); RDW 15.4 % (11.5-15.5); WBC 6.4 k/uL (3.8-10.6)
[2020-10-03 10:20] LABS: ALT 17 U/L (4-34); AST 23 U/L (14-36); African American GFR (CKD) >90 (>60 ml/min/1.73 sqM); Albumin 4.5 g/dL (3.5-5.0); Alkaline Phosphatase 71 U/L (38-126); Anion Gap 10 mmol/L; Blood Urea Nitrogen 11 mg/dL (7-17); Calcium 10.4 mg/dL (8.4-10.2); Carbon Dioxide 25 mmol/L (22-30); Chloride 104 mmol/L (98-107); Glucose 119 mg/dL (74-99); Magnesium 1.8 mg/dL (1.6-2.3); Non-African American GFR(CKD) 85 (>60 ml/min/1.73 sqM); Potassium 4.3 mmol/L (3.5-5.1); Sodium 139 mmol/L (137-145); Total Bilirubin 0.4 mg/dL (0.2-1.3)
--- NOTE | 2020-10-03 10:20 | ED ---
Headache HPI - General Chief Complaint: Headache Stated Complaint: elevated BP, double vision Time Seen by Provider: 10/03/20 09:28 Source: patient, RN notes reviewed Mode of arrival: ambulatory Limitations: no limitations - History of Present Illness Initial Comments: This a 59-year-old female presents emergency Department with chief complaint of headache, hypertension. Patient states his symptoms started on Thursday. Patient was recent seen in emergency from for similar complaints. Patient was started on blood pressure medication states that helping she did follow-up with her PCP today who sent her back in. Patient states she's had double vision and which is affected with certain movements she states it's better when she looks down. She states she is if she closes one eye does resolved issue. Denies any trauma no blood thinners. Patient states she's never had hypertension at this past. She's had some nausea today denies any chest pain shortness of breath no focal weakness. - Related Data Home Medications Medication Instructions Recorded Confirmed Esomeprazole Magnesium [NexIUM 20 mg PO DAILY 02/12/20 10/03/20 24Hr] diphenhydrAMINE [Benadryl] 25 mg PO DAILY PRN 10/03/20 10/03/20 Previous Rx's Medication Instructions Recorded hydroCHLOROthiazide [Hydrodiuril] 25 mg PO DAILY #30 tab 10/01/20 Allergies Allergy/AdvReac Type Severity Reaction Status Date / Time hydromorphone [From Dilaudid] AdvReac Nausea & Verified 10/03/20 11:28 Vomiting ibuprofen [From Motrin] AdvReac "hyperventi Verified 10/03/20 11:28 late" SPINAL ANESTHESIA Allergy Itching Uncoded 10/03/20 09:21 Review of Systems ROS Statement: Those systems with pertinent positive or pertinent negative responses have been documented in the HPI. ROS Other: All systems not noted in ROS Statement are negative. Past Medical History Past Medical History: GERD/Reflux, Hypertension, Osteoarthritis (OA), Pneumonia, Thyroid Disorder Additional Past Medical History / Comment(s): Hx hypertension, no meds for past year, hiatal hernia, hx pneumonia 2012, hx anemia. History of Any Multi-Drug Resistant Organisms: None Reported Past Surgical History: Joint Replacement, Orthopedic Surgery Additional Past Surgical History / Comment(s): EGD, bilateral foot surgery, right hip replacement. TLH Past Anesthesia/Blood Transfusion Reactions: Previous Problems w/ Anesthesia, Postoperative Nausea & Vomiting (PONV) Additional Past Anesthesia/Blood Transfusion Reaction / Comment(s): Itchy, rash and hives after spinal. Itching after general anesthesia. Past Psychological History: Anxiety Smoking Status: Never smoker Past Alcohol Use History: Occasional Past Drug Use History: None Reported - Past Family History Mother Family Medical History: No Reported History General Exam Limitations: no limitations General appearance: alert, in no apparent distress Head exam: Present: atraumatic, normocephalic, normal inspection Eye exam: Present: normal appearance, PERRL, EOMI. Absent: scleral icterus, conjunctival injection, periorbital swelling ENT exam: Present: normal exam, normal oropharynx, mucous membranes moist Neck exam: Present: normal inspection, full ROM. Absent: tenderness, meningismus, lymphadenopathy Respiratory exam: Present: normal lung sounds bilaterally. Absent: respiratory distress, wheezes, rales, rhonchi, stridor Cardiovascular Exam: Present: regular rate, normal rhythm, normal heart sounds. Absent: systolic murmur, diastolic murmur, rubs, gallop, clicks Neurological exam: Present: alert, oriented X3, CN II-XII intact, reflexes normal, other (Finger to nose intact). Absent: motor sensory deficit Skin exam: Present: warm, dry, intact, normal color. Absent: rash Course Vital Signs 10/03/20 10/03/20 10/03/20 09:21 10:40 11:07 Temperature 97.6 F Pulse Rate 56 L 91 100 Respiratory 16 18 18 Rate Blood Pressure 216/126 193/120 147/114 O2 Sat by Pulse 100 97 98 Oximetry Medical Decision Making - Medical Decision Making 59-year-old female presented for hypertension, blurred vision. Patient will be admitted for uncontrolled hypertension, hypertensive crisis. Patient will be filled by cardiology BLOOD PRESSURE MEDICATIONS. - Lab Data Result diagrams: 10/03/20 10:02 10/03/20 10:02 Lab Results 10/03/20 10/03/20 10/03/20 Range/Units 10:02 10:02 10:02 WBC 6.4 (3.8-10.6) k/uL RBC 4.99 (3.80-5.40) m/uL Hgb 13.1 (11.4-16.0) gm/dL Hct 41.6 (34.0-46.0) % MCV 83.3 (80.0-100.0) fL MCH 26.2 (25.0-35.0) pg MCHC 31.5 (31.0-37.0) g/dL RDW 15.4 (11.5-15.5) % Plt Count 387 (150-450) k/uL MPV 8.8 Neutrophils % 61 % Lymphocytes % 27 % Monocytes % 6 % Eosinophils % 3 % Basophils % 1 % Neutrophils # 3.9 (1.3-7.7) k/uL Lymphocytes # 1.7 (1.0-4.8) k/uL Monocytes # 0.4 (0-1.0) k/uL Eosinophils # 0.2 (0-0.7) k/uL Basophils # 0.1 (0-0.2) k/uL Hypochromasia Slight Sodium 139 (137-145) mmol/L Potassium 4.3 (3.5-5.1) mmol/L Chloride 104 (98-107) mmol/L Carbon Dioxide 25 (22-30) mmol/L Anion Gap 10 mmol/L BUN 11 (7-17) mg/dL Creatinine 0.77 (0.52-1.04) mg/dL Est GFR (CKD-EPI)AfAm >90 (>60 ml/min/1.73 sqM) Est GFR (CKD-EPI)NonAf 85 (>60 ml/min/1.73 sqM) Glucose 119 H (74-99) mg/dL Calcium 10.4 H (8.4-10.2) mg/dL Magnesium 1.8 (1.6-2.3) mg/dL Total Bilirubin 0.4 (0.2-1.3) mg/dL AST 23 (14-36) U/L ALT 17 (4-34) U/L Alkaline Phosphatase 71 (38-126) U/L Troponin I <0.012 (0.000-0.034) ng/mL Total Protein 8.0 (6.3-8.2) g/dL Albumin 4.5 (3.5-5.0) g/dL Disposition Clinical Impression: Hypertensive urgency, Headache, Severe uncontrolled hypertension Disposition: ADMITTED IP TO THIS [facility] Condition: Fair Referrals: Lamont Whiteside DO [Primary Care Provider] - 1-2 days
--- NOTE | 2020-10-03 10:41 | CT ---
EXAMINATION TYPE: CT brain wo con DATE OF EXAM: 10/03/2020 COMPARISON: 02/28/2010 INDICATION: Headache and double vision DLP: 1092.4 mGycm, Automated exposure control for dose reduction was used. CONTRAST: None CT of the brain is performed utilizing 3 mm thick sections through the posterior fossa and 3 mm thick sections through the remaining calvarium. Study is performed within 24 hours of arrival to the hosp [facility]. No abnormal hyperdensity is present to suggest an acute intracranial hemorrhage. No mass lesion is evident. No acute infarcts are evident. Ventricles and sulci are appropriate for the patient age. Paranasal sinuses and mastoid air cells within the [id number] are clear. IMPRESSIONS: 1. Normal CT Brain
--- NOTE | 2020-10-03 11:07 | XR ---
EXAMINATION TYPE: XR chest 2V DATE OF EXAM: 10/03/2020 COMPARISON: 02/12/2020 TECHNIQUE: PA and lateral views submitted. HISTORY: Chest pain FINDINGS: The lungs are clear and there is no pneumothorax, pleural effusion, or focal pneumonia. Heart size normal. No overt failure. IMPRESSION: 1. No acute process.
[2020-10-03] MEDS ORDERED: lisinopriL 10 MG TAB PO STA (11:36)
[2020-10-03] MEDS ORDERED: NALOXONE 0.4 MG/ML 1 ML VIAL IV PRN (11:37)
[2020-10-03] MEDS ORDERED: ONDANSETRON 4 MG/2 ML VIAL IVP PRN (11:37)
[2020-10-03] MEDS ORDERED: HYDROcodone/APAP 5-325MG 1 EACH TAB PO PRN (11:37)
[2020-10-03] MEDS ORDERED: hydrALAZINE HCL 20 MG/ML 1 ML VIAL IVP PRN (11:38)
[2020-10-03] MEDS: ACETAMINOPHEN TAB 325 MG TAB PO PRN ×2 (14:44→20:01)
--- NOTE | 2020-10-03 23:32 | P.HPIM ---
History of Present Illness H&P Date: 10/03/20 Chief Complaint: Headache Patient is a 59-year-old female with a known history of hypertension, GERD, hypothyroidism, anxiety and osteoarthritis presents to ER due to complaints of headache and uncontrolled hypertension. Patient states that her symptoms started Thursday night. She was having headache, blurred vision/double vision. Patient was recently seen in the ER and was started on blood pressure medications, hydrochlorothiazide and was sent home to follow-up with primary care physician. Patient was having headache and double vision. Patient was having tingling sensation in the left hand yesterday which is resolved now. Also associate with nausea. No chest pain or shortness of breath. No slurred speech or focal weakness. Denied any facial droop. Due to worsening symptoms patient presents ER. In the ER initial blood pressure was 216/126, pulse 56 respirations 16 and pulse ox 100 % on room air. Patient was given a dose of hydralazine IV and lisinopril 10 mg by mouth in the ER. CT head showed normal CT brain. Chest x-ray showed no acute process. EKG showed sinus rhythm with frequent PVCs. Laboratory data reviewed. Review of Systems Constitutional: Patient denies any fever or chills . No generalized weakness or weight loss. Abdomen: Patient denied nausea vomiting and diarrhea and abdominal pain. Cardiovascular: Patient denies any chest pain or short of breath no palpitations. Respiratory: patient denied any cough or sputum production. No shortness of breath Neurologic: Patient denied any numbness or tingling. Patient does complain of headache and double vision. No focal weakness.. Musculoskeletal: Patient denies any complaints of joint swelling or deformity. Skin: Negative Psychiatric: Negative Endocrine: No heat or cold intolerance. No recent weight gain. Genitourinary: No dysuria or hematuria. All other 14 point ROS negative except the above Past Medical History Past Medical History: GERD/Reflux, Hypertension, Osteoarthritis (OA), Pneumonia, Thyroid Disorder Additional Past Medical History / Comment(s): Hx hypertension, no meds for past year, hiatal hernia, hx pneumonia 2012, hx anemia. History of Any Multi-Drug Resistant Organisms: None Reported Past Surgical History: Joint Replacement, Orthopedic Surgery Additional Past Surgical History / Comment(s): EGD, bilateral foot surgery, right hip replacement. TLH Past Anesthesia/Blood Transfusion Reactions: Previous Problems w/ Anesthesia, Postoperative Nausea & Vomiting (PONV) Additional Past Anesthesia/Blood Transfusion Reaction / Comment(s): Itchy, rash and hives after spinal. Itching after general anesthesia. Past Psychological History: Anxiety Smoking Status: Never smoker Past Alcohol Use History: Occasional Past Drug Use History: None Reported - Past Family History Mother Family Medical History: No Reported History Medications and Allergies Home Medications Medication Instructions Recorded Confirmed Type Esomeprazole Magnesium [NexIUM 20 mg PO DAILY 02/12/20 10/03/20 History 24Hr] hydroCHLOROthiazide [Hydrodiuril] 25 mg PO DAILY #30 tab 10/01/20 10/03/20 Rx diphenhydrAMINE [Benadryl] 25 mg PO DAILY PRN 10/03/20 10/03/20 History Allergies Allergy/AdvReac Type Severity Reaction Status Date / Time hydromorphone [From Dilaudid] AdvReac Nausea & Verified 10/03/20 11:28 Vomiting ibuprofen [From Motrin] AdvReac "hyperventi Verified 10/03/20 11:28 late" SPINAL ANESTHESIA Allergy Itching Uncoded 10/03/20 09:21 Physical Exam Vitals: Vital Signs Temp Pulse Pulse Resp BP BP Pulse Ox 10/03/20 16:36 97.9 F 98 18 141/97 97 10/03/20 14:24 105 H 18 146/96 99 10/03/20 13:51 97 18 183/108 98 10/03/20 13:21 98.1 F 60 18 155/100 99 10/03/20 12:05 96 18 161/108 98 10/03/20 11:07 100 18 147/114 98 10/03/20 10:40 91 18 193/120 97 10/03/20 09:21 97.6 F 56 L 16 216/126 100 Intake and Output 10/03/20 10/03/20 10/03/20 06:59 14:59 22:59 Other: Weight 75.75 kg PHYSICAL EXAMINATION: Patient is lying in the bed comfortably, no acute distress, awake alert and oriented.. HEENT: Normocephalic. Neck is supple. Pupils reactive. Nostrils clear. Oral cavity is moist. Neck reveals no JVD, carotid bruits, or thyromegaly. CHEST EXAMINATION: Trachea is central. Symmetrical expansion. Lung mcclellan clear to auscultation and percussion. CARDIAC: Normal S1, S2 with no gallops. No murmurs ABDOMEN: Soft. Bowel sounds normal. No organomegaly. No abdominal bruits. Extremities: reveal no edema. No clubbing or cyanosis Neurologically awake, alert, oriented x3 with well-coordinated movements. No focal deficits noted Skin: No rash or skin lesions. Psychiatric: Coperative. Nonsuicidal Musculoskeletal: No joint swelling or deformity. Normal range of motion. Results CBC & Chem 7: 10/03/20 10:02 10/04/20 06:51 Labs: Abnormal Lab Results - Last 24 Hours (Table) 10/03/20 Range/Units 10:02 Glucose 119 H (74-99) mg/dL Calcium 10.4 H (8.4-10.2) mg/dL Thrombosis Risk Factor Assmnt - DVT/VTE Prophylaxis DVT/VTE Prophylaxis: Pharmacologic Prophylaxis ordered - Choose All That Apply Any of the Below Risk Factors Present?: No Assessment and Plan Assessment: Hypertensive urgency Headache and diplopia. Rule out acute CVA. CT head is negative. History of hypertension. Patient has not been taking medications for the past 1 year Hypothyroidism. GERD and hiatal hernia Anxiety DVT prophylaxis with heparin subcu Plan: Patient will be continued on telemetry monitoring. Was started hydrochlorothiazide recently. Lisinopril was added. Patient was given IV hydralazine in the ER. Continue with symptomatic management for nausea and headache. Cardiology and neurology was consulted. Continue to follow closely. Time with Patient: Greater than 30
[2020-10-04] MEDS: PANTOPRAZOLE 40 MG TABLET PO SCH (06:26)
[2020-10-04 08:18] LABS: African American GFR (CKD) >90 (>60 ml/min/1.73 sqM); Anion Gap 9 mmol/L; Blood Urea Nitrogen 12 mg/dL (7-17); Calcium 9.8 mg/dL (8.4-10.2); Carbon Dioxide 24 mmol/L (22-30); Chloride 102 mmol/L (98-107); Glucose 108 mg/dL (74-99); Non-African American GFR(CKD) 79 (>60 ml/min/1.73 sqM); Potassium 4.2 mmol/L (3.5-5.1); Sodium 135 mmol/L (137-145)
[2020-10-04] MEDS: lisinopriL 10 MG TAB PO SCH (09:22)
[2020-10-04] MEDS: hydroCHLOROthiazide 25 MG TAB PO SCH (09:22)
--- NOTE | 2020-10-04 13:30 | P.CRDCN ---
History of Present Illness History of present illness: HISTORY OF PRESENTING ILLNESS This is a pleasant 59-year-old female past medical history significant for hypertension, GERD, osteoporosis. 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 We have been asked to see in consultation for hypertension. She presents to the emergency department on 10/03/2020 with complaints of headache and elevated blood pressure. Patient states his symptoms started on Thursday. Patient was recent seen in emergency on 10/01/20, she states she ran out of her antihyper tensive medication, she presented with complaints of headache and was hypertensive, she was given pain medication for headache, IV labetaolol and was started on hydrochlorothiazide and was told to follow-up with her PCP. Over the past few days she has been having symptoms of throbbing headache, double vision, worsening blurry vision. Double vision is better when she lies down. She states she was diagnosed with hypertension around 2020, her BP was around 130-140s and was started on antihypertensive medication. She denies chest pain, palpitations, shortness of breath, lower extremity edema, fatigue, weakness, lightheadedness, syncope. She denies symptoms of orthopnea or PND. She denies tobacco, alcohol or illicit drug use. She denies history of HI, Stroke, hyperlipidemia, coronary artery disease. She states her family history includes her dad having an ablation. Current home medications include hydrochlorothiazide 25mg daily, Benadryl PRN, Nexium 20mg daily. Patient was given IV hydralazine and started on lisinopril at home medication Hydrochlorothiazide 25 mg daily. DIAGNOSTICS EKG reveals Sinus rhythm HR 87 with PVCs no significant ST-T wave abnormalities. Prior EKG sinus rhythm HR 95, no significant ST-T wave abnormalities. Chest x-ray no acute cardiopulmonary process. Brain CT no acute intracranial process. Laboratory reviewed, CBC unremarkable, sodium 135, potassium 4.2, BUN 12, serum creatinine 0.8, magnesium 1.8, troponin negative 1, TSH within normal limits REVIEW OF SYSTEMS At the time of my exam: CONSTITUTIONAL: Denies fever or chills. CARDIOVASCULAR: Denies chest pain, shortness of breath, orthopnea, PND or palpitations. RESPIRATORY: Denies cough. GASTROINTESTINAL: Denies abdominal pain, diarrhea, constipation, nausea or vomiting. MUSCULOSKELETAL: Denies myalgias. NEUROLOGIC: +headache, +double vision, +blurry vision, Denies numbness, tingling, weakness. ENDOCRINE: Denies fatigue, weight change, polydipsia or polyurina. GENITOURINARY: Denies burning, hematuria or urgency with micturation. HEMATOLOGIC: Denies history of anemia or bleeding. PHYSICAL EXAMINATION Blood pressure 134/83 heart rate 95 afebrile and maintaining oxygen saturation 98% on room air CONSTITUTIONAL: No apparent distress. HEENT: Head is normocephalic. Pupils are equal, round. Sclerae anicteric. Mucous membranes of the mouth are moist. No JVD. No carotid bruit. CHEST EXAMINATION: Lungs are clear to auscultation. No chest wall tenderness is noted on palpation or with deep breathing. HEART EXAMINATION: Regular rate and rhythm. S1, S2 heard. No murmurs, gallops or rub. ABDOMEN: Soft, nontender. Positive bowel sounds. EXTREMITIES: 2+ peripheral pulses, no lower extremity edema and no calf tenderness. SKIN: intact NEUROLOGIC EXAMINATION: Patient is awake, alert and oriented x3. Patient has left sided horizontal nystagmus present. Difficult visualizing left side when eye gaze towards the left. ASSESSMENT Uncontrolled hypertension Blurry Vision, Double vision, left sided nystagmus GERD PLAN We will obtain echocardiogram Continue current medical regimen with hydrochlorothiazide 25 mg daily, lisinopril 10 mg daily Recommend neurology consult Further recommendations based on clinical course Nurse Practitioner note has been reviewed, I agree with a documented findings and plan of care. Patient was seen and examined. Past Medical History Past Medical History: GERD/Reflux, Hypertension, Osteoarthritis (OA), Pneumonia, Thyroid Disorder Additional Past Medical History / Comment(s): Hx hypertension, no meds for past year, hiatal hernia, hx pneumonia 2012, hx anemia. History of Any Multi-Drug Resistant Organisms: None Reported Past Surgical History: Joint Replacement, Orthopedic Surgery Additional Past Surgical History / Comment(s): EGD, bilateral foot surgery, right hip replacement. TLH Past Anesthesia/Blood Transfusion Reactions: Previous Problems w/ Anesthesia, Postoperative Nausea & Vomiting (PONV) Additional Past Anesthesia/Blood Transfusion Reaction / Comment(s): Itchy, rash and hives after spinal. Itching after general anesthesia. Past Psychological History: Anxiety Smoking Status: Never smoker Past Alcohol Use History: Occasional Past Drug Use History: None Reported - Past Family History Mother Family Medical History: No Reported History Medications and Allergies Home Medications Medication Instructions Recorded Confirmed Type Esomeprazole Magnesium [NexIUM 20 mg PO DAILY 02/12/20 10/03/20 History 24Hr] hydroCHLOROthiazide [Hydrodiuril] 25 mg PO DAILY #30 tab 10/01/20 10/03/20 Rx diphenhydrAMINE [Benadryl] 25 mg PO DAILY PRN 10/03/20 10/03/20 History Allergies Allergy/AdvReac Type Severity Reaction Status Date / Time hydromorphone [From Dilaudid] AdvReac Nausea & Verified 10/03/20 11:28 Vomiting ibuprofen [From Motrin] AdvReac "hyperventi Verified 10/03/20 11:28 late" SPINAL ANESTHESIA Allergy Itching Uncoded 10/03/20 09:21 Physical Exam Vitals: Vital Signs Temp Pulse Resp BP Pulse Ox 10/03/20 13:51 97 18 183/108 98 10/03/20 12:05 96 18 161/108 98 10/03/20 11:07 100 18 147/114 98 10/03/20 10:40 91 18 193/120 97 10/03/20 09:21 97.6 F 56 L 16 216/126 100 Intake and Output 10/02/20 10/03/20 10/03/20 22:59 06:59 14:59 Other: Weight 75.75 kg Results 10/03/20 10:02 10/04/20 06:51 Cardiac Enzymes 10/03/20 10/03/20 Range/Units 10:02 10:02 AST 23 (14-36) U/L Troponin I <0.012 (0.000-0.034) ng/mL CBC 10/03/20 Range/Units 10:02 WBC 6.4 (3.8-10.6) k/uL RBC 4.99 (3.80-5.40) m/uL Hgb 13.1 (11.4-16.0) gm/dL Hct 41.6 (34.0-46.0) % Plt Count 387 (150-450) k/uL Comprehensive Metabolic Panel 10/03/20 Range/Units 10:02 Sodium 139 (137-145) mmol/L Potassium 4.3 (3.5-5.1) mmol/L Chloride 104 (98-107) mmol/L Carbon Dioxide 25 (22-30) mmol/L BUN 11 (7-17) mg/dL Creatinine 0.77 (0.52-1.04) mg/dL Glucose 119 H (74-99) mg/dL Calcium 10.4 H (8.4-10.2) mg/dL AST 23 (14-36) U/L ALT 17 (4-34) U/L Alkaline Phosphatase 71 (38-126) U/L Total Protein 8.0 (6.3-8.2) g/dL Albumin 4.5 (3.5-5.0) g/dL Current Medications Generic Name Dose Route Start Last Admin Trade Name Freq PRN Reason Stop Dose Admin Acetaminophen 650 mg 10/03/20 11:37 Acetaminophen Tab 325 Mg Tab PO Q6HR PRN Mild Pain or Fever > 100.5 Hydrocodone Bitart/Acetaminophen 1 each 10/03/20 11:37 Hydrocodone/Apap 5-325mg 1 Each Tab PO Q4HR PRN Moderate Pain Hydralazine HCl 10 mg 10/03/20 11:38 Hydralazine Hcl 20 Mg/Ml 1 Ml Vial IVP Q4HR PRN Blood Pressure - High Naloxone HCl 0.2 mg 10/03/20 11:37 Naloxone 0.4 Mg/Ml 1 Ml Vial IV Q2M PRN Opioid Reversal Ondansetron HCl 4 mg 10/03/20 11:37 Ondansetron 4 Mg/2 Ml Vial IVP Q8HR PRN Nausea And Vomiting Intake and Output 10/02/20 10/03/20 10/03/20 22:59 06:59 14:59 Other: Weight 75.75 kg Patient Weight 10/04/20 06:59 Weight 75.75 kg 10/03/20 10:02 10/03/20 10:02
[2020-10-04] MEDS ORDERED: ASPIRIN 81 MG PO SCH (15:15)
[2020-10-04] MEDS: ASPIRIN 325 MG TAB PO SCH (16:21)
--- NOTE | 2020-10-04 18:24 | P.CNNES ---
History of Present Illness Consult date: 10/04/20 Requesting physician: Surinder Ortiz Reason for Consult: Diplopia History of Present Illness: Patient is a 59-year-old female came to the hospital yesterday at 9:18 AM for evaluation of headache, diplopia. Patient states that she has been in usual state of health, when she woke up on Thursday morning, 10/01/2020, not feeling well. She was having a throbbing headache, double vision and also noticed tingling in the fingers of the left hand. She felt she may have slept wrong. As the symptoms did not improve, she went to [facility] urgent care from where she was recommended to go to the ER. She was noted to have high blood pressure. She had an EKG done. Her blood pressure was adjusted with medication and she started feeling better. The diplopia was still present. She was sent home. The tingling in the left hand lasted for 1 day and then went away. The next day on Thursday she was feeling mostly fine, no headache but still had double vision. On Thursday, which is yesterday, she still has double vision but no headache. While she was going to the bathroom, she felt dizzy like will pass out. As the day went away, the headache got worse. She also noticed that the blood pressure was going higher. She also started having nausea and vomiting. As the symptoms persisted, she came to the ER. She denies any recent or remote head or neck injury. She states that she was doing very well and had a great weekend until symptoms started on Thursday as mentioned above. Vital signs on arrival blood pressure 216/126, pulse rate 56, temperature 97.6. Computed tomography scan of the head without contrast on 10/03/[address] brain. I reviewed computed tomography scan and I agree with the findings. Chest x-ray showed no acute process. EKG shows normal sinus rhythm. Frequent PVCs. Blood tests shows normal CBC, CMP, TSH 2.04 Patient currently takes esomeprazole, hydrochlorothiazide and Benadryl. Patient has never smoked, denies diabetes, had borderline hypertension for some time started on HCTZ in March 2020. No family history of strokes. No family history of cerebral aneurysms. Patient does not take any antiplatelet medication. She has had 2 hips replaced therefore takes Aleve. She drinks alcohol very occasionally. Review of Systems As above in detail. All other review of systems unremarkable. No head injury. No slurred speech, facial droop, or loss of vision. Denies any chest pain, abdominal pain. She did have some nausea and vomiting. No diarrhea. No fever or chills. No weight loss. Denies any problem with balance or hearing. Patient has history of migraines long time ago. She has not had any migraines for a very long time. Denies dysphagia. Past Medical History Past Medical History: GERD/Reflux, Hypertension, Osteoarthritis (OA), Pneumonia, Thyroid Disorder Additional Past Medical History / Comment(s): Hx hypertension, no meds for past year, hiatal hernia, hx pneumonia 2012, hx anemia. History of Any Multi-Drug Resistant Organisms: None Reported Past Surgical History: Joint Replacement, Orthopedic Surgery Additional Past Surgical History / Comment(s): EGD, bilateral foot surgery, right hip replacement. TLH Past Anesthesia/Blood Transfusion Reactions: Previous Problems w/ Anesthesia, Postoperative Nausea & Vomiting (PONV) Additional Past Anesthesia/Blood Transfusion Reaction / Comment(s): Itchy, rash and hives after spinal. Itching after general anesthesia. Past Psychological History: Anxiety Smoking Status: Never smoker Past Alcohol Use History: Occasional Past Drug Use History: None Reported - Past Family History Mother Family Medical History: No Reported History Medications and Allergies Home Medications Medication Instructions Recorded Confirmed Type Esomeprazole Magnesium [NexIUM 20 mg PO DAILY 02/12/20 10/03/20 History 24Hr] hydroCHLOROthiazide [Hydrodiuril] 25 mg PO DAILY #30 tab 10/01/20 10/03/20 Rx diphenhydrAMINE [Benadryl] 25 mg PO DAILY PRN 10/03/20 10/03/20 History Allergies Allergy/AdvReac Type Severity Reaction Status Date / Time hydromorphone [From Dilaudid] AdvReac Nausea & Verified 10/03/20 11:28 Vomiting ibuprofen [From Motrin] AdvReac "hyperventi Verified 10/03/20 11:28 late" SPINAL ANESTHESIA Allergy Itching Uncoded 10/03/20 09:21 Physical Examination - Vital Signs Vital Signs: Vital Signs Temp Pulse Pulse Resp BP BP Pulse Ox 10/04/20 08:00 98.1 F 95 16 134/83 95 10/04/20 03:49 98.3 F 84 16 148/94 100 10/03/20 23:15 97.6 F 99 20 135/83 98 10/03/20 20:00 98.3 F 89 18 144/86 98 10/03/20 16:36 97.9 F 98 18 141/97 97 10/03/20 14:24 105 H 18 146/96 99 10/03/20 13:51 97 18 183/108 98 10/03/20 13:21 98.1 F 60 18 155/100 99 10/03/20 12:05 96 18 161/108 98 10/03/20 11:07 100 18 147/114 98 10/03/20 10:40 91 18 193/120 97 Intake and Output 10/03/20 10/04/20 10/04/20 22:59 06:59 14:59 Other: Voiding Method Toilet Toilet Toilet # Voids 2 2 2 Weight 76 kg Patient is a middle aged female, very pleasant, in no acute distress. Patient is alert awake oriented to time place and person. Speech and language functions are normal. Attention, concentration and fund of knowledge is adequate. On cranial examination, pupils are equal, round and reacting to light, visual mcclellan are full on confrontation, extraocular muscles revealed mild left lateral rectus palsy, with diplopia looking to the left. Face is symmetric, tongue protrudes to the midline. Palatal elevation and sensation normal, hearing and shoulder shrug normal, facial sensation normal. No Awilda's. On muscle strength testing, there is no pronator drift and the strength is normal in arms and legs distally and proximally. Deep tendon reflexes are 1 in the upper limbs to in the lower extremities and plantars downgoing. Sensory to touch is equal with no neglect. Cerebellar function showed no ataxia for [id number], or vole-qm-[id number] testing. No dysdiadochokinesia. Tone and bulk of muscles normal. Gait normal. Patient can walk on her toes heels and tandem. On general examination, there is no carotid bruit or murmur, S1-S2 audible. Abdomen is soft nontender. Chest is clear. Peripheral pulses are present. No edema. Results - Laboratory Findings CBC and BMP: 10/03/20 10:02 10/04/20 06:51 Abnormal Lab Findings: Abnormal Labs 10/03/20 10/04/20 10:02 06:51 Sodium 135 L Glucose 119 H 108 H Calcium 10.4 H Assessment and Plan Assessment: * New onset headache, diplopia, nausea vomiting, off and on since last 3 days. Also had transient tingling of the left hand fingers lasting for 1 day. Examination revealed mild left lateral rectus palsy. Rule out stroke/TIA or other vascular process. * Hypertension Plan: * Patient will undergo MRI of the brain to evaluate for an acute stroke. * MRA of head and neck to rule out carotid or vertebral artery dissection or aneurysm. * Patient started on aspirin 325 mg daily. * 2-D echo completed, results pending. * Fasting lipid panel, hemoglobin A1c * Telemetry monitoring. * Dr. Fahad Charles will follow patient in the morning.
[2020-10-05 00:15] LABS: Hemoglobin A1C 5.9 % (4.0-6.0)
[2020-10-05] MEDS: PANTOPRAZOLE 40 MG TABLET PO SCH (06:50)
[2020-10-05] MEDS: hydroCHLOROthiazide 25 MG TAB PO SCH (08:09)
[2020-10-05] MEDS: ASPIRIN 325 MG TAB PO SCH (08:09)
[2020-10-05] MEDS: lisinopriL 10 MG TAB PO SCH (08:09)
--- NOTE | 2020-10-05 10:49 | ECHOF ---
Referral Reason:LV function MEASUREMENTS -------- HEIGHT: 170.2 cm WEIGHT: 75.7 kg BP: 134/83 RVIDd: 2.5 cm (< 3.3) IVSd: 1.6 cm (0.6 - 1.1) LVIDd: 3.9 cm (3.9 - 5.3) LVPWd: 1.4 cm (0.6 - 1.1) IVSs: 1.9 cm LVIDs: 1.5 cm LVPWs: 2.0 cm LAESV Index (A-L): 23.79 ml/m Ao Diam: 3.3 cm (2.0 - 3.7) AV Cusp: 2.1 cm (1.5 - 2.6) LA Diam: 3.1 cm (2.7 - 3.8) MV EXCURSION: 14.414 mm (> 18.000) MV EF SLOPE: 63 mm/s (70 - 150) EPSS: 0.7 cm MV E Tani: 0.52 m/s MV DecT: 113 ms MV A Tani: 0.78 m/s MV E/A Ratio: 0.67 FINDINGS -------- Sinus rhythm with extra systolic beats. This was a technically adequate study. The left ventricular size is normal. There is moderate concentric left ventricular hypertrophy. O verall left ventricular systolic function is normal with, an EF between 55 - 60 %. The right ventricle is normal in size. Normal LA size by volume 22+/-6 ml/m2. The right atrium was not well visualized. Interatrial and interventricular septum intact. The aortic valve is trileaflet and appears structurally normal. There is no evidence of aortic regu rgitation. There is no evidence of aortic stenosis. No mitral regurgitation. Trace tricuspid regurgitation present. Unable to estimate RVSP due to inadequate TR jet spectral do ppler profile. There is no pulmonic regurgitation present. The aortic root size is normal. IVC Not well visulized. There is no pericardial effusion. CONCLUSIONS -------- 1. The left ventricular size is normal. 2. There is moderate concentric left ventricular hypertrophy. 3. Overall left ventricular systolic function is normal with, an EF between 55 - 60 %. 4. Trace tricuspid regurgitation present. REHABILITATION AIDE/SCHEDULER: Tamica Molina RUST
--- NOTE | 2020-10-05 10:57 | MR ---
EXAMINATION TYPE: MR brain wo con DATE OF EXAM: 10/05/2020 COMPARISON: CT brain 10/03/2020 HISTORY: Diplopia, nausea vomiting, rule out CVA CONTRAST: Performed utilizing 0 mL intravenous Gadavist gadolinium contrast. TECHNIQUE: Multiplanar, multiecho imaging on a 3.0 Ashtyn magnet is performed through the brain. Stud y is performed within 24 hours of arrival to the hospital. The craniovertebral junction is normal. The pituitary is normal. Diffusion-weighted imaging is performed. No abnormal hyperintensity is present to suggest an acute i ntracranial infarct or acute ischemic change. There is some hyperintensity along the cortex of the left occipital lobe on T2 and inversion recovery weighted sequences. This area is hypointense on the CT examination. Old cortical infarct through thi s region may be present. No diffusion abnormality is evident. Some minimal periventricular deep white matter punctate hyperintensities are within the more superior cerebrum are nonspecific but can be related to chronic microvascular ischemic change. Ventricles and sulci are appropriate for the patient age. IMPRESSIONS: 1. 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 2. Mild chronic appearing periventricular and deep white matter ischemic changes.
--- NOTE | 2020-10-05 11:01 | P.PN ---
Subjective Progress Note Date: 10/04/20 Principal diagnosis: Uncontrolled hypertension Diplopia and left lateral rectus palsy Patient is a 59-year-old female with a known history of hypertension, GERD, hypothyroidism, anxiety and osteoarthritis presents to ER due to complaints of headache and uncontrolled hypertension. Patient states that her symptoms started Thursday night. She was having headache, blurred vision/double vision. Patient was recently seen in the ER and was started on blood pressure medications, hydrochlorothiazide and was sent home to follow-up with primary care physician. Patient was having headache and double vision. Also associate with nausea. No chest pain or shortness of breath. No slurred speech or focal weakness. Denied any facial droop. Due to worsening symptoms patient presents ER. In the ER initial blood pressure was 216/126, pulse 56 respirations 16 and pulse ox 100 % on room air. Patient was given a dose of hydralazine IV and lisinopril 10 mg by mouth in the ER. CT head showed normal CT brain. Chest x-ray showed no acute process. EKG showed sinus rhythm with frequent PVCs. Laboratory data reviewed. 10/04/2020 Patient is still having double vision. Blood pressure is better controlled. Patient is being continued on hydrochlorothiazide and lisinopril . No complaints of headache. No complaints of chest pain or shortness breath. Patient was seen by neurology and recommended MRI/MRA. 2-D echocardiogram was done. Cardiology and neurology is on board. Current medications reviewed. Objective - Vital Signs Vital signs: Vital Signs Temp 98.2 F 10/04/20 11:29 Pulse 69 10/04/20 14:00 Resp 16 10/04/20 14:00 BP 141/96 10/04/20 11:29 Pulse Ox 98 10/04/20 11:29 Intake & Output 10/03/20 10/04/20 10/04/20 18:59 06:59 18:59 Intake Total 740 Balance 740 Weight 75.75 kg 76 kg Intake: Oral 740 Other: Voiding Method Toilet Toilet # Voids 2 2 - Exam PHYSICAL EXAMINATION: Patient is lying in the bed comfortably, no acute distress, awake alert and oriented.. HEENT: Normocephalic. Neck is supple. Pupils reactive. Nostrils clear. Oral cavity is moist. Neck reveals no JVD, carotid bruits, or thyromegaly. CHEST EXAMINATION: Trachea is central. Symmetrical expansion. Lung mcclellan clear to auscultation and percussion. CARDIAC: Normal S1, S2 with no gallops. No murmurs ABDOMEN: Soft. Bowel sounds normal. No organomegaly. No abdominal bruits. Extremities: reveal no edema. No clubbing or cyanosis Neurologically awake, alert, oriented x3 with well-coordinated movements. Left lateral rectus Pepcid. No focal deficits noted Skin: No rash or skin lesions. Psychiatric: Coperative. Nonsuicidal Musculoskeletal: No joint swelling or deformity. Normal range of motion. - Labs CBC & Chem 7: 10/03/20 10:02 10/04/20 06:51 Labs: Abnormal Lab Results - Last 24 Hours (Table) 10/04/20 Range/Units 06:51 Sodium 135 L (137-145) mmol/L Glucose 108 H (74-99) mg/dL Assessment and Plan Assessment: Hypertensive urgency. Improved now. Headache and diplopia and mild left lateral rectus palsy. Rule out acute CVA. CT head is negative. History of hypertension. Patient has not been taking medications for the past 1 year Hypothyroidism. GERD and hiatal hernia Anxiety DVT prophylaxis with heparin subcu Plan: Patient will be continued on telemetry monitoring. Was started hydrochlorothiazide recently. Lisinopril was added. Blood pressure is better controlled now. Patient was given IV hydralazine in the ER. Continue with symptomatic man agement for nausea and headache. MRA/MRI to rule out acute CVA. 2-D echo was done. Follow-up lipid profile and A1c level. Cardiology and neurology is on board.. Continue to follow closely. Time with Patient: Greater than 30
--- NOTE | 2020-10-05 12:19 | MR ---
EXAMINATION TYPE: MR angio head wo/neck wo/w con DATE OF EXAM: 10/05/2020 COMPARISON: MRI brain 10/05/2020 HISTORY: Diplopia, nausea vomiting, rule out CVA TECHNIQUE: Utilizing 3-D [id number] intracranial MRA of the [place] of [place] was performed. FINDINGS: The vertebrobasilar and carotid systems are patent. There is no sizable aneurysm or vascular malform ation. Right posterior cerebral artery originates from the internal circulation. Right vertebral artery is dominant. Visualized common carotid arteries are patent and there is ectasi a of the left proximal internal carotid artery but no definite significant hemodynamic stenosis. IMPRESSION: 1. No evidence of vascular malformation or sizable aneurysm. 2. No significant hemodynamic stenosis of the carotid bifurcations.
--- NOTE | 2020-10-05 13:07 | P.PN ---
Subjective Progress Note Date: 10/05/20 Seeing the patient for the first time. Please refer to Dr. Tucker's note for further neurological work-up and his assessment and plan. According to the patient states she feels her symptoms are drastically better today compared to her initial presentation. She denies of any further headache, nausea or vomiting. She feels her double vision at has been improving. She denies of any focal weakness, numbness, tingling or difficulty getting her words out. MRI of the brain w/o: Is reported as old cortical infarct inferior left occipital lobe. Mild chronic-appearing periventricular and deep white matter ischemic changes. MRA of the head and neck is reported as no evidence of vascular malformation or sizable aneurysm. No significant hemodynamic stenosis of the carotid bifurcation. 2-D echo was reported as left ventricular size is normal. Moderate concentric left ventricular hypertrophy. Overall left ventricular systolic function is normal with ejection fraction of 55-60%. Hemoglobin A1c is 5.9 which is within normal limits. TSH is 2.040 which is considered within normal limits as well. Objective - Vital Signs Vital signs: Vital Signs Temp 98.1 F 10/05/20 12:00 Pulse 107 H 10/05/20 12:00 Resp 16 10/05/20 12:00 BP 122/87 10/05/20 12:00 Pulse Ox 100 10/05/20 12:00 Intake & Output 10/04/20 10/05/20 10/05/20 18:59 06:59 18:59 Intake Total 740 10 120 Output Total 300 Balance 740 -290 120 Weight 75 kg Intake: IV 10 Invasive Line 1 10 Oral 740 120 Output: Urine 300 Other: Voiding Method Toilet Toilet # Voids 2 1 1 - Exam GENERAL: The patient is lying in bed and is not in acute distress. NEUROLOGICAL: Higher mental function: The patient is awake, alert, oriented to self, place and time. Patient is following commands. No aphasia and no neglect. Cranial nerves: The pupils are round, equal and reactive to light and accommodation. Visual mcclellan are full to confrontation throughout. Extraocular movement is left lateral rectus palsy and no significant nystagmus appreciated.. Facial sensation is normal to touch throughout. The facial strength is normal throughout. Hearing is normal bilaterally to hand rub. Tongue is midline and moved [id number] without any difficulty. No dysarthria is noted. Shoulder shrug is normal bilaterally. Motor: Gait is normal with normal arm swings. The strength is 5 over 5 throughout. Normal tone and bulk. Cerebellum: Normal finger to nose bilaterally. Sensation: Sensation is normal to touch throughout. WORK-UP: MRI of the brain w/o: Is reported as old cortical infarct inferior left occipital lobe. Mild chronic-appearing periventricular and deep white matter ischemic changes. I spoke with reading radiologist and he felt it was more left occipital/parietal encephalomalacia. MRA of the head and neck is reported as no evidence of vascular malformation or sizable aneurysm. No significant hemodynamic stenosis of the carotid bifurca tion. 2-D echo was reported as left ventricular size is normal. Moderate concentric left ventricular hypertrophy. Overall left ventricular systolic function is normal with ejection fraction of 55-60%. Hemoglobin A1c is 5.9 which is within normal limits. TSH is 2.040 which is considered within normal limits as well. - Labs CBC & Chem 7: 10/03/20 10:02 10/04/20 06:51 Assessment and Plan Assessment: * New onset headache, diplopia, nausea vomiting, off and on since last 3 days. Also had transient tingling of the left hand fingers lasting for 1 day. Examination revealed left lateral rectus palsy. Unknown cause. MRI is negative for acute or subactue ischemic stroke. 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 * History of Hypertension and presented with hypertension urgency--resolved * Hypothyroidism * Anxiety Plan: I ordered an MRI with gadolinium (the one she had was w/o) to rule out any intracranial mass, MRI IAC (since shows better evaluation of brainstem). I also ordered MR venography. Ordered Ativan 1mg once. Currently the patient is on 325 mg aspirin daily and I'll add Lipitor 40 mg daily at bedtime for secondary stroke prophylaxis Pending lipid panel Will defer the rest of medical management to the primary team. Recommend for patient to follow-up with a neurologist and Ophthamologist as outpatient upon discharge within 1-2 weeks. The plan is discussed with the patient's nurse. Dr. Tucker will provide neurology coverage tomorrow in the AM. Fahad Charles MD Neuro-Hospitalist Time with Patient: Less than 30
--- NOTE | 2020-10-05 13:50 | P.PN ---
Subjective This is a pleasant 59-year-old female past medical history significant for hypertension, GERD, osteoporosis. She does not follow with a consultant electronics. We have been asked to see in consultation for hypertension. She presents to the emergency department on 10/03/2020 with complaints of headache and elevated blood pressure. EKG reveals Sinus rhythm HR 87 with PVCs no significant ST-T wave abnormalities. Prior EKG sinus rhythm HR 95, no significant ST-T wave abnormalities. Chest x-ray no acute cardiopulmonary process. Brain CT no acute intracranial process. Echocardiogram revealed EF of 55-60%, moderate concentric left ventricular hypertrophy, trace tricuspid regurgitation. Patient seen and examined at bedside, no acute distress. She states her symptoms have much improved in terms of her blood pressure being high and overall feeling better. She does state that she does have been some anxiety after her MRI due to the length of the test. Her blood pressures have much improved. BP 132/65, heart rate 87. Telemetry reviewed patient is in sinus mechanism heart rate 70s to 90s with occasional PVCs. Neurology is following the patient and ordered an MRI. MRI brain revealed an old cortical infarct inferior left occipital lobe, mild chronic appearing periventricular and deep white matter ischemic changes. MRA of the head and neck is reported as no evidence of vascular malformation or sizable aneurysm. No significant hemodynamic stenosis of the carotid bifurcation. PHYSICAL EXAMINATION Blood pressure 132/65 heart rate 95 afebrile and maintaining oxygen saturation 98% on room air CONSTITUTIONAL: No apparent distress. HEENT: Neck Supple No JVD. CHEST EXAMINATION: Lungs are clear to auscultation. HEART EXAMINATION: Regular rate and rhythm. S1, S2 heard. No murmurs, gallops or rub. ABDOMEN: Soft, nontender. Positive bowel sounds. EXTREMITIES: 2+ peripheral pulses, no lower extremity edema and no calf tenderness. NEUROLOGIC EXAMINATION: Patient is awake, alert and oriented x3. ASSESSMENT Uncontrolled hypertension Old cortical infarct inferior left occipital lobe seen on MRI Brain New onset headache, diplopia GERD PLAN Continue current medical regimen with hydrochlorothiazide 25 mg daily, lisinopril 10 mg daily Neurology following From a cardiology perspective, patient is stable, no further workup from a cardiology perspective. Patient can follow the office with Dr. Perry. Nurse Practitioner note has been reviewed, I agree with a documented findings and plan of care. Patient was seen and examined. Objective - Vital Signs Vital signs: Vital Signs Temp 98.1 F 07/30/21 12:00 Pulse 107 H 10/05/20 12:00 Resp 16 10/05/20 12:00 BP 122/87 10/05/20 12:00 Pulse Ox 100 10/05/20 12:00 Intake & Output 10/04/20 10/05/20 10/05/20 18:59 06:59 18:59 Intake Total 740 10 300 Output Total 300 Balance 740 -290 300 Weight 75 kg Intake: IV 10 Invasive Line 1 10 Oral 740 300 Output: Urine 300 Other: Voiding Method Toilet Toilet # Voids 2 1 1 - Labs CBC & Chem 7: 10/03/20 10:02 10/04/20 06:51
[2020-10-05] MEDS ORDERED: ALPRAZolam 0.5 MG TAB PO STA (13:52)
[2020-10-05] MEDS ORDERED: LORazepam 2 MG/ML INJ IV PRN (14:43)
[2020-10-05 18:15] LABS: Chol/HDL Ratio 6.33; LDL Cholesterol,Calculated 142.8 mg/dL (0.0-131.0); VLDL Calculation 49.2 mg/dL (5.00-40.00)
[2020-10-05] MEDS ORDERED: ATORVASTATIN 40 MG TAB PO SCH (21:00)
[2020-10-06] MEDS: PANTOPRAZOLE 40 MG TABLET PO SCH (06:42)
[2020-10-06] MEDS ORDERED: LORazepam 2 MG/ML INJ ONE (07:57)
[2020-10-06 09:25] VITALS: TEMP 98
[2020-10-06] MEDS: ASPIRIN 325 MG TAB PO SCH (09:26)
[2020-10-06] MEDS: lisinopriL 10 MG TAB PO SCH (09:26)
[2020-10-06] MEDS: hydroCHLOROthiazide 25 MG TAB PO SCH (09:26)
--- NOTE | 2020-10-06 09:39 | MR ---
EXAMINATION TYPE: MR brain and iac wo/w con DATE OF EXAM: 10/06/2020 COMPARISON: None HISTORY: Nausea, diplopia, left lateral gaze palsy TECHNIQUE: Multiplanar, multisequence images of the brain and brainstem is performed without and with IV contras t, utilizing 7.5 mL intravenous Gadavist . FINDINGS: The T1-weighted sagittal images, the midline structures including the craniovertebral junction relati onships and prevertebral soft tissues are normal. The ventricles, basal cisterns and sulci over the convexities are mildly prominent. There is mild ex vacuo dilatation of the atria the left lateral ventricle and there is a remote infarct involving the cortex and subcortical white matter of the left posterior parietal lobe and there is a focal area of abnormal increased signal intensity in the white matter adjacent to the atria the left lateral ventri vicki within the left occipital lobe consistent with remote white matter infarct. Based on diffusion-weighted imaging, there are no areas of diffusion restriction or acute ischemic ev ent. The intraorbital contents appear normal and symmetric. Visualized paranasal sinuses and mastoid air c ells are well aerated. High-resolution posterior fossa reveals no abnormality of the internal auditory canals or cerebellopo ntine angles are fourth ventricle. Cerebellum is normal without focal abnormal signal intensity brain stem is unremarkable IMPRESSION: 1. Mild generalized degenerative change. 2. Remote infarcts involving the cortex and subcortical white matter of the posterior left parietal l obe and of the white matter in the left occipital lobe adjacent to the atria of the left lateral vent ricle. 3. No acute ischemic event. 4. No abnormality of the posterior fossa including the cerebellar pontine angles or internal auditory canals.
--- NOTE | 2020-10-06 09:41 | MR ---
MR venography of the brain. HISTORY: Headache. COMPARISON: None. TECHNIQUE: Cerebral sonography was performed with protocol with and without contrast. FINDINGS: The cerebral remains and dural sinuses are widely patent without filling defect or occlusion. IMPRESSION: No significant abnormality seen.
[2020-10-06 12:26] VITALS: BP 116/82; PULSE 112; RESP 16
--- NOTE | 2020-10-08 00:24 | P.PN ---
Subjective Progress Note Date: 10/06/20 Patient was seen via Tele-neurology today on 10/06/2020. Patient is sitting comfortably in the bed. Offers no complaints. Denies headache. Diplopia is getting better. Patient is ready for discharge. Objective - Vital Signs Vital signs: Vital Signs Temp 98.0 F 10/06/20 08:00 Pulse 112 H 10/06/20 12:00 Resp 16 10/06/20 12:00 BP 116/82 10/06/20 12:00 Pulse Ox 96 10/06/20 12:00 Intake & Output 10/05/20 10/06/20 10/06/20 18:59 06:59 18:59 Intake Total 300 1040 Balance 300 1040 Weight 73.2 kg Intake: Oral 300 1040 Other: Voiding Method Toilet Toilet # Voids 1 1 2 - Exam On examination patient's mental status, speech and linguistic functions are normal. Her left lateral rectus palsy has improved. Face is symmetric and tongue protrudes the midline. Muscle strength is normal. Numbness has resolved. - Labs CBC & Chem 7: 10/03/20 10:02 10/04/20 06:51 Labs: Abnormal Lab Results - Last 24 Hours (Table) 10/05/20 Range/Units 06:48 Triglycerides 246.0 H (0.0-149.0) mg/dL Cholesterol 228 H (0-200) mg/dL LDL Cholesterol, Calc 142.8 H (0.0-131.0) mg/dL VLDL Cholesterol, Calc 49.20 H (5.00-40.00) mg/dL HDL Cholesterol 36.0 L (40.0-60.0) mg/dL Assessment and Plan Assessment: * New onset headache, diplopia, nausea vomiting, off and on since last 3 days. Also had transient tingling of the left hand fingers lasting for 1 day. Examination revealed mild left lateral rectus palsy. No acute ischemic stroke noted on the MRI. * Old left parietal/occipital stroke/encephalomalacia. * Hypertension, with possible hypertensive urgency. Her neurological symptoms could be related to hypertensive urgency/emergency. Plan: * MRI of the brain revealed old cortical infarct inferior left occipital lobe. Mild chronic-appearing periventricular and deep white matter ischemic changes. * MRA of head shows no evidence of vascular malformation or sizable aneurysm. * MRA of the neck shows no significant hemodynamic stenosis of the carotid bif urcations. Right vertebral artery is dominant. No stenosis. * MRV of the brain negative for any sinus thrombosis. * MRI of brain in IAC with and without contrast shows mild generalized degenerative change. Remote infarcts involving the cortex and subcortical white matter of the posterior left parietal lobe and of the white matter in the left occipital lobe adjacent to the atria of the left lateral ventricle. No acute ischemic event. No CP angle mass, or any mass in the IAC. * I reviewed all studies. * Patient started on aspirin 325 mg daily. * 2-D echo revealed normal left-ventricular size. Moderate concentric LVH. EF is between 55-60%. Trace TR.. * Fasting lipid panel with cholesterol 228, LDL 142, HDL 36 and triglycerides 246. * Hemoglobin A1c 5.9 * Telemetry monitoring. No arrhythmia. * Neurologically clear for discharge. Suggest patient follow-up with neurologist and whizzer operator in 1-2 weeks as outpatient.
== END 2020-10-06 16:45 | disposition home or self-care (01) ==
LOC: EC 09:18 → 3SCARD 11:37
PROVIDERS: ADMIT Internal Medicine; ATTEND Internal Medicine
DX: I16.0 Hypertensive urgency (principal); I11.9 Hypertensive heart disease without heart failure; H53.2 Diplopia; F41.9 Anxiety disorder, unspecified; K44.9 Diaphragmatic hernia without obstruction or gangrene; K21.9 Gastro-esophageal reflux disease without esophagitis; E03.9 Hypothyroidism, unspecified; H55.00 Unspecified nystagmus; G83.9 Paralytic syndrome, unspecified; I49.3 Ventricular premature depolarization; M81.0 Age-related osteoporosis without current pathological fracture; M19.90 Unspecified osteoarthritis, unspecified site; Z79.899 Other long term (current) drug therapy; Z88.4 Allergy status to anesthetic agent; Z88.6 Allergy status to analgesic agent; Z88.5 Allergy status to narcotic agent; Z86.73 Personal history of transient ischemic attack (TIA), and cerebral infarction without residual deficits; Z96.641 Presence of right artificial hip joint; Z87.01 Personal history of pneumonia (recurrent)
CPT/HCPCS: 96375 ×2; 96376; 96361; 96374; 99285; 36415; 93005; 93306; 80061; 80053; 80048; 84443; 83735; 84484; 85025; 83036; 71046; 70450; 70544; 70546; 70549; 70551; 70553; G0378 ×4; J2060; J0360; J2405; A9585 ×2

== ENCOUNTER 2020-11-05 10:47 | Day surgery (SDC) | payer BC ==
[2020-11-01 11:03] VITALS: BMI 25.2
[2020-11-05] MEDS ORDERED: SODIUM CHLORIDE 0.9% 500 ML 500 ML IV ONE (11:27)
[2020-11-05 11:37] VITALS: TEMP 98.3
[2020-11-05] MEDS ORDERED: fentaNYL (PF) 50 MCG/ML 2 ML AMP ONE (11:42)
[2020-11-05] MEDS: BENZOCAINE SPRAY 1 CAN MUCOUS MEM ONE ×2 (11:52→11:55)
[2020-11-05] MEDS: fentaNYL (PF) 50 MCG/ML 2 ML AMP IVP ONE ×2 (11:55→11:57)
[2020-11-05] MEDS ORDERED: MIDAZOLAM 2 MG/2 ML VIAL IVP ONE ×2 (11:55→11:57)
--- NOTE | 2020-11-05 12:15 | P.TEE ---
Description of Procedure(s): Procedure performed: Transesophageal Echocardiogram with color flow doppler, continuous wave doppler, moderate conscious sedation Moderate conscious sedation: Moderate conscious sedation was supplied with direct supervision of myself using Versed and Fentanyl. Complications: none Indications: Cardiac source of emboli History: Patient is a pleasant 59-year-old female with history of hypertension who had elevated blood pressure and visual changes with concern of stroke and MRI confirming stroke. Therefore KAMI was recommended to evaluate for any cardiac source of emboli. PROCEDURE: After the risks, benefits and alternatives of the above mentioned procedure was explained in detail with the patient, informed consent was obtained. Patient was brought to the lab in a fasting state. Patient was given IV Versed and Fentanyl for sedation. The throat was sprayed with Hurricane to anesthetize the throat. A lubricated Omni probe was then introduced into the esophagus and stomach and multiple views were obtained. 2D echo with color flow doppler, pulsed wave doppler and continuous wave doppler was utilized. Agitated saline bubbles were injected to assess for any intra-atrial shunt. The probe was then removed. Patient tolerated the procedure well. Patient was transferred to the post procedure area in stable and satisfactory condition. FINDINGS: 1. The aortic valve is the cuspid and functions normally. There is no aortic insufficiency or stenosis.. 2. The mitral valve appears be normal with trace mitral regurgitation. 3. Tricuspid valve appears to be normal. 4. The interatrial septum is intact. No evidence of PFO. 5. Left atrial appendage is free of clot. 6. Left ventricular size and function appears to be normal with ejection fraction 60%.
[2020-11-05 19:24] VITALS: RESP 16
[2020-11-05 19:27] VITALS: BP 148/95; PULSE 72
== END 2020-11-05 15:05 | disposition home or self-care (01) ==
LOC: CATHCVL 10:47
PROVIDERS: ATTEND Internal Medicine
DX: I34.0 Nonrheumatic mitral (valve) insufficiency (principal); I10 Essential (primary) hypertension; E78.5 Hyperlipidemia, unspecified
CPT/HCPCS: 93312; 93320; 93325; J2250; J3010

== ENCOUNTER → 2021-09-24 | Outpatient (CLI) | payer BC ==
--- NOTE | 2021-09-25 09:00 | MM ---
Reason for Exam: Screening (asymptomatic). Last mammogram was performed 1 year(s) and 4 month(s) ago. Patient History: Menarche at age 13. First Full-Term at age 25. Postmenopausal. Paternal aunt had breast cancer at or over age 50. Risk Values: Alean 5 year model risk: 1.2%. NCI Lifetime model risk: 6.7%. Prior Study Comparison: 01/31/2005 Bilateral Screening Mammogram, [facility]. 01/27/2019 Bilateral Screening Mammogram, [facility]. 05/29/2020 Bilateral Screening Mammogram, [facility]. Tissue Density: There are scattered fibroglandular densities. Findings: Analyzed By CAD. There is no suspicious group of microcalcifications or new suspicious mass in either breast. Overall Assessment: Negative, BI-RAD 1 Management: Screening Mammogram of both breasts in 1 year. A clinical breast exam by your physician is recommended on an annual basis and results should be correlated with mammographic findings. Electronically signed and approved by: Chan Garay M.D. Radiologis
== END | disposition home or self-care (01) ==
LOC: RADMAMWWP 06:57
PROVIDERS: ATTEND Family Medicine
DX: Z12.31 Encounter for screening mammogram for malignant neoplasm of breast (principal); Z78.0 Asymptomatic menopausal state; Z80.3 Family history of malignant neoplasm of breast
CPT/HCPCS: 77067

== ENCOUNTER → 2021-12-03 | Outpatient (CLI) | payer BC ==
--- NOTE | 2021-12-03 10:51 | XR ---
Lumbar spine HISTORY: Low back pain 3 views of the lumbar spine, no comparisons There is a dextroscoliosis centered at L2-3. Lumbar vertebral bodies show preserved height. Bone mine ralization is reduced. Is multilevel spondylosis. Loss of disc height is present at intervertebral le vels. Vacuum phenomenon present at L5-S1, L3-4, L2-3. Sclerosis in the posterior elements of the lumb ar spine is consistent with facet arthropathy change. Atherosclerotic vascular calcifications present in the aorta iliac distribution. Postop changes are noted to the hips. IMPRESSION: Osteopenia, scoliosis, degenerative disc disease, facet arthropathy
== END | disposition home or self-care (01) ==
LOC: RADXRMAIN 09:00
PROVIDERS: ATTEND Family Medicine
DX: M51.26 Other intervertebral disc displacement, lumbar region (principal); M47.816 Spondylosis without myelopathy or radiculopathy, lumbar region
CPT/HCPCS: 72100

== ENCOUNTER → 2022-07-16 | Outpatient (CLI) | payer BC ==
--- NOTE | 2022-07-16 07:23 | MR ---
EXAMINATION TYPE: MR lumbar spine wo con DATE OF EXAM: 07/16/2022 COMPARISON: Lumbar spine x-ray December 03, 2021 HISTORY: Lower back pain for 5 years, BLE radiculopathy x 6 months. Myalgia. Radiculopathy. Scoliosis . Spondylolisthesis. Spondylosis without myelopathy. Intervertebral disc degeneration. Status post mi nimal invasive surgery at L4-L5 level all per order. TECHNIQUE: Multiplanar, multisequence imaging of the lumbar spine is performed without IV contrast. FINDINGS: Persistent dextroconvex scoliosis centered at L3 level Sagittal images of the lumbar spine show vertebral body heights to appear satisfactory. There is multilevel disc desiccation and fairly m oderate disc space narrowing with vacuum disc phenomenon at L2-L3 and L3-L4 along with L5-S1 levels. The conus medullaris is somewhat low-lying ending at inferior L2 level without abnormal signal or cl umping of lumbosacral nerve roots. Heterogeneous Modic type III endplate changes at L2-L3 and L5-S1 l evels and Modic type I and type III endplate changes at L3-L4 level. Axial images at T12-L1 level appears within normal limits. Axial images at L1-L2 level show tiny left paracentral disc protrusion minimally effacing anterior th ecal sac. Axial images at L2-L3 level shows mild broad-based disc bulge minimally effaces the anterior thecal s ac along with mild facet arthropathy effacing the left posterior lateral thecal sac. Bilateral neural foramina are patent. Axial images at the L3-L4 level show mild facet arthropathy bilaterally. There is left paracentral di sc herniation minimally effacing the anterior thecal sac. There is [id number] left-sided neural foraminal narrowing due to superior extrusion seen best sagittal image 9 and axial image 15. Axial images at L4-L5 level show moderate facet arthropathy and ligamentum flavum hypertrophy effacin g the bilateral posterolateral thecal sac. There is mild broad disc bulge minimally effacing the ante rior thecal sac. Patent bilateral neural foramina are seen. Axial images at the L5-S1 level show right-sided pars defect L5 levels. No definitive left-sided pars defect. There is focal right paracentral disc protrusion minimally effacing anterolateral thecal sac . There is mild facet arthropathy bilaterally. Left-sided neural foramina is patent. There is moderat e right-sided neural foraminal narrowing due to foraminal/lateral disc protrusion component. Encroach ment on the right L5 nerve is felt present axial image 3 and sagittal image 13. There are multiple thin-walled cysts seen predominantly centrally in both kidneys. IMPRESSION: Scoliosis with multilevel degenerative change in the lumbar spine redemonstrated as detai led above
== END | disposition home or self-care (01) ==
LOC: RADMRIMAIN 06:00
PROVIDERS: ATTEND Family Medicine
DX: M41.86 Other forms of scoliosis, lumbar region (principal); M47.26 Other spondylosis with radiculopathy, lumbar region; M51.16 Intervertebral disc disorders with radiculopathy, lumbar region
CPT/HCPCS: 72148

== ENCOUNTER → 2024-06-21 | Outpatient (CLI) | payer BC ==
--- NOTE | 2024-06-21 08:01 | MM ---
Reason for Exam: Screening (asymptomatic). Last mammogram was performed 2 year(s) and 9 month(s) ago. Patient History: Menarche at age 13. First Full-Term at age 25. Postmenopausal. Paternal aunt had breast cancer at or over age 50. Risk Values: Alena 5 year model risk: 1.4%. NCI Lifetime model risk: 6.2%. Prior Study Comparison: 01/27/2019 Bilateral Screening Mammogram, [facility]. 05/29/2020 Bilateral Screening Mammogram, [facility]. 09/24/2021 Bilateral MG screening mammo w CAD, [facility]. Tissue Density: There are scattered areas of fibroglandular density. Findings: Analyzed By CAD. There are a few scattered benign-appearing punctate calcifications bilaterally redemonstrated. There is no suspicious new group of microcalcifications or new suspicious mass in either breast. Overall Assessment: Benign, BI-RAD 2 Management: Screening Mammogram of both breasts in 1 year. . Patient should continue monthly self-breast exams. A clinical breast exam by your physician is recommended on an annual basis. This exam should not preclude additional follow-up of suspicious palpable abnormalities. Note on Alena scores and lifetime risk: 1. A Alena score greater than 3% is considered moderate risk. If this is the case, consider specialist referral to assess eligibility for a risk reducing agent. 2. If overall lifetime risk for the development of breast cancer is 20% or higher, the patient may qualify for future screening with alternating mammogram and breast MRI. [facility], , 06/21/2024 7:57 AM. Electronically signed and approved by: Evaristo Gorman M.D.
== END | disposition home or self-care (01) ==
LOC: RADMAMWWP 07:16
PROVIDERS: ATTEND Family Medicine
DX: Z12.31 Encounter for screening mammogram for malignant neoplasm of breast (principal); R92.323 Mammographic fibroglandular density, bilateral breasts; R92.1 Mammographic calcification found on diagnostic imaging of breast; Z78.0 Asymptomatic menopausal state; Z80.3 Family history of malignant neoplasm of breast
CPT/HCPCS: 77063; 77067